=== PATIENT | female | born 1945 | race Caucasian/White ===

== ENCOUNTER → 2019-07-06 11:51 | Outpatient (BNVA) | payer MEDICARE, OTHER, SELFPAY | PROVIDERS: Family Provider Nurse Practitioner Family; PCP Nurse Practitioner Family; Visit Provider Social Worker | DX: F33.2 Major depressive disorder, recurrent severe without psychotic features (principal); F43.12 Post-traumatic stress disorder, chronic; F40.10 Social phobia, unspecified | CPT/HCPCS: 90834 ==

== ENCOUNTER 2019-07-09 09:50 | Outpatient (RCR) | payer MEDICARE, OTHER, SELFPAY | END 2019-07-31 23:59 | disposition home or self-care (01) | LOC: PULRHB 09:50 | PROVIDERS: Family Provider Nurse Practitioner Family; PCP Nurse Practitioner Family; Visit Provider Family Medicine | DX: J44.9 Chronic obstructive pulmonary disease, unspecified (principal) | CPT/HCPCS: 94618; G0424 ==

== ENCOUNTER → 2019-07-30 09:48 | Outpatient (BNVA) | payer MEDICARE, OTHER, SELFPAY | PROVIDERS: Family Provider Nurse Practitioner Family; PCP Nurse Practitioner Family; Visit Provider Social Worker | DX: F33.2 Major depressive disorder, recurrent severe without psychotic features (principal); F43.12 Post-traumatic stress disorder, chronic; F40.10 Social phobia, unspecified | CPT/HCPCS: 90834 ==

== ENCOUNTER 2019-08-05 07:19 | Outpatient (RCR) | payer MEDICARE, OTHER, SELFPAY | END 2019-08-29 23:59 | disposition home or self-care (01) | LOC: PULRHB 07:19 | PROVIDERS: Family Provider Nurse Practitioner Family; PCP Nurse Practitioner Family; Visit Provider Family Medicine | DX: J44.9 Chronic obstructive pulmonary disease, unspecified (principal) | CPT/HCPCS: G0239; G0424 ==

== ENCOUNTER → 2019-08-17 09:45 | Outpatient (BNVA) | payer MEDICARE, OTHER, SELFPAY | PROVIDERS: Family Provider Nurse Practitioner Family; PCP Nurse Practitioner Family; Visit Provider Social Worker | DX: F33.2 Major depressive disorder, recurrent severe without psychotic features (principal); F43.12 Post-traumatic stress disorder, chronic; F40.10 Social phobia, unspecified | CPT/HCPCS: 90834 ==

== ENCOUNTER → 2019-09-02 10:48 | Outpatient (BNVA) | payer MEDICARE, OTHER, SELFPAY | PROVIDERS: Family Provider Nurse Practitioner Family; PCP Nurse Practitioner Family; Visit Provider Social Worker | DX: F33.2 Major depressive disorder, recurrent severe without psychotic features (principal); F43.12 Post-traumatic stress disorder, chronic; F40.10 Social phobia, unspecified | CPT/HCPCS: 90834 ==

== ENCOUNTER 2019-09-04 12:48 | Outpatient (RCR) | payer MEDICARE, OTHER, SELFPAY | END 2019-09-29 23:59 | disposition home or self-care (01) | LOC: PULRHB 12:48 | PROVIDERS: Family Provider Nurse Practitioner Family; PCP Nurse Practitioner Family; Visit Provider Family Medicine | DX: J44.9 Chronic obstructive pulmonary disease, unspecified (principal) | CPT/HCPCS: G0239; G0424 ==

== ENCOUNTER 2019-09-09 09:27 | Outpatient (CLI) | payer MEDICARE, OTHER, SELFPAY ==
--- NOTE | 2019-09-09 10:15 | MM_ITS ---
WS: [id number] BILATERAL DIAGNOSTIC DIGITAL MAMMOGRAM WITH CAD HISTORY: HX OF BREAST CA COMPARISON: 09/03/2018, 08/28/2017, 08/20/2016 Bilateral CC and MLO views submitted. Computer aided detection analyzed. Breast composition: The breasts are heterogeneously dense, which may obscure small masses. No suspici ous masses, microcalcifications or architectural distortion. Dystrophic calcifications demonstrate lo ng-term stability in the central RIGHT breast. Postoperative clips in the axillary tail are stable. N o record changer multiple prior examinations. MM/[place] [id number] IMPRESSION: BI-RADS: 2-Benign FOLLOW UP: 1 Year Follow-up
== END 2019-09-09 09:28 | disposition home or self-care (01) ==
LOC: RADSHAW 09:31
PROVIDERS: Family Provider Nurse Practitioner Family; PCP Nurse Practitioner Family; Visit Provider Nurse Practitioner Family
DX: Z85.3 Personal history of malignant neoplasm of breast (principal)
CPT/HCPCS: 77066

== ENCOUNTER → 2019-10-27 08:28 | Outpatient (BNVA) | payer MEDICARE, OTHER, SELFPAY | PROVIDERS: Family Provider Nurse Practitioner Family; PCP Nurse Practitioner Family; Visit Provider Social Worker | DX: F33.2 Major depressive disorder, recurrent severe without psychotic features (principal); F43.12 Post-traumatic stress disorder, chronic; F40.10 Social phobia, unspecified | CPT/HCPCS: 90834 ==

== ENCOUNTER → 2019-11-18 07:57 | Outpatient (BNVA) | payer MEDICARE, OTHER, SELFPAY | PROVIDERS: Family Provider Nurse Practitioner Family; PCP Nurse Practitioner Family; Visit Provider Social Worker | DX: F33.2 Major depressive disorder, recurrent severe without psychotic features (principal); F43.12 Post-traumatic stress disorder, chronic; F40.10 Social phobia, unspecified | CPT/HCPCS: 90834 ==

== ENCOUNTER → 2019-12-02 07:54 | Outpatient (BNVA) | payer MEDICARE, OTHER, SELFPAY | PROVIDERS: PCP Nurse Practitioner Family; Visit Provider Social Worker | DX: F33.2 Major depressive disorder, recurrent severe without psychotic features (principal); F43.12 Post-traumatic stress disorder, chronic; F40.10 Social phobia, unspecified | CPT/HCPCS: 90834 ==

== ENCOUNTER 2019-12-11 10:15 | Outpatient (CLI) | payer MEDICARE, OTHER, SELFPAY ==
--- NOTE | 2019-12-11 11:00 | US_ITS ---
WS: [id number] Complete ABDOMINAL ULTRASOUND HISTORY: abdominal pain with radiating pain to back COMPARISON: None available. Liver: 10.9 cm in length. Liver is normal size and echogenicity with no mass or intrahepatic dilatati on. Gallbladder: Normally distended with no gallstones, wall thickening or pericholecystic fluid. Gallbladder wall thickness: 0.2 cm. Pancreas: Normal size and echogenicity. CBD: 0.3 cm. Right kidney: 10.3 cm x 4.1 cm x 4.4 cm. No mass, cortical thickening or hydronephrosis. Nonobstruct ing calcification RIGHT kidney measures 1.1 cm. Cortical cyst superior kidney with a maximum diameter of 1.2 cm. Left kidney: 10.2 cm x 4.2 cm x 4.6 cm. No mass, cortical thickening or hydronephrosis. Spleen: Normal size and echogenicity. Abdominal aorta and IVC are within normal limits. No ascites. US/US abdomen complete* [id number] IMPRESSION: 1. Normal gallbladder. 2. Nonobstructing calcification RIGHT kidney.
[2019-12-11 11:30] LABS: Basophils # 0.1 10^3/uL (0.0-0.1); Eosinophils # 0.1 10^3/uL (0.0-0.8); Eosinophils % 1.8 %; Hematocrit 46.8 % (37.0-47.0); Hemoglobin 15.4 g/dL (11.5-15.3); Lymphocytes # 2.6 10^3/uL (0.8-4.8); Lymphocytes % 41.6 %; Mean Corpuscular HGB Conc 32.9 g/dL (30.0-36.0); Mean Corpuscular Hemoglobin 31.9 pg (28.0-34.0); Mean Corpuscular Volume 96.9 fL (81-99); Mean Platelet Volume 8.7 fL (7.4-10.4); Monocytes # 0.7 10^3/uL (0.2-0.9); Monocytes % 10.9 %; Neutrophils # 2.7 10^3/uL (1.8-7.7); Neutrophils % 44.5 %; Nucleated Red Blood Cells % 0 %; Platelet Count 313 10^3/cmm (130-400); Red Blood Count 4.83 10^6/uL (4.1-5.3); Red Cell Distribution Width 13.4 % (12.1-15.1); White Blood Count 6.2 10^3/uL (4.0-10.0)
[2019-12-11 11:46] LABS: Bilirubin Urine Neg (NEGATIVE); Blood Urine Neg (Negative); Glucose Urine UA Norm (Normal); Ketones Urine 1+ (Negative); Leukocyte Esterase Urine Negative (Negative); Nitrate Urine Negative (Negative); Protein Urine Neg (Negative); Specific Gravity, Urine 1.005 (1.005-1.030); Urine Appearance Clear (CLEAR); Urine Color Yellow (Yellow); Urobilinogen Urine Norm (Negative)
[2019-12-11 11:50] LABS: Alanine Aminotransferase 23 U/L (0-33); Albumin Level 4.4 g/dL (3.5-5.2); Alkaline Phosphatase 62 IU/L (35-105); Anion Gap 13.1 (5-19); Aspartate Amino Transferase 23 U/L (0-32); Blood Urea Nitrogen 9 mg/dL (8-23); Calcium 8.8 mg/dL (8.5-10.5); Carbon Dioxide 25 mmol/L (22-29); Chloride 100 mmol/L (98-107); Globulin 2.1 g/dL (1.3-4.6); Glucose 84 mg/dL (65-115); Osmolality Calculated 273 mOsm/kg (285-295); Potassium 4.1 mmol/L (3.5-5.1); Sodium 134 mmol/L (136-145); Total Bilirubin 0.4 mg/dL (0.15-1.2); Total Protein 6.5 g/dL (6.6-8.7)
[2019-12-11 12:05] LABS: Bacteria Urine 1+; Mucus Urine TRACE; Squamous Epithelial Cell Urine 0-4 (0-5)
[2019-12-11 12:06] LABS: Add Urine Culture? No
== END 2019-12-11 10:16 | disposition home or self-care (01) ==
LOC: RAD 10:20
PROVIDERS: PCP Nurse Practitioner Family; Visit Provider Nurse Practitioner Family
DX: R10.9 Unspecified abdominal pain (principal); K21.9 Gastro-esophageal reflux disease without esophagitis; N20.0 Calculus of kidney
CPT/HCPCS: 76700; 80053; 81001; 85025

== ENCOUNTER → 2019-12-14 22:24 | Outpatient (BNVA) | payer MEDICARE, OTHER, SELFPAY | PROVIDERS: PCP Nurse Practitioner Family; Visit Provider Nurse Practitioner Family | DX: K21.0 Gastro-esophageal reflux disease with esophagitis (principal); R07.9 Chest pain, unspecified; R11.0 Nausea; R12 Heartburn; R14.2 Eructation | CPT/HCPCS: 87338 ==

== ENCOUNTER → 2020-03-28 08:52 | Outpatient (BNVA) | payer MEDICARE, OTHER, SELFPAY | PROVIDERS: PCP Nurse Practitioner Family; Visit Provider Nurse Practitioner Family | DX: E03.9 Hypothyroidism, unspecified (principal); Z79.899 Other long term (current) drug therapy; E78.2 Mixed hyperlipidemia | CPT/HCPCS: 80053; 80061; 81003; 83036; 84443; 85025 ==

== ENCOUNTER 2020-09-27 10:27 | Outpatient (CLI) | payer MEDICARE, OTHER, SELFPAY ==
--- NOTE | 2020-09-27 10:30 | MM_ITS ---
WS: [id number] DIAGNOSTIC BILATERAL DIGITAL MAMMOGRAM WITH CAD HISTORY: C50.919 - Malignant neoplasm of unspecified site of unspecified female breast COMPARISON: 09/09/2019, 09/03/2018 and 08/28/2017 TECHNIQUE: Bilateral craniocaudad, mediolateral oblique, and mediolateral views are submitted. Comput er aided detection utilized. Breast composition: The breasts are heterogeneously dense, which may obscure small masses. Postsurgic al changes in the upper outer quadrant of the RIGHT breast. There are dystrophic calcifications centr ally which are stable over multiple prior years. Stable lymph nodes in the LEFT breast. MM/[place] [id number] IMPRESSION: BI-RADS: 2-Benign FOLLOW UP: 1 Year Follow-up
== END 2020-09-27 10:28 | disposition home or self-care (01) ==
LOC: RADSHAW 10:28
PROVIDERS: PCP Nurse Practitioner Family; Visit Provider Nurse Practitioner Family
DX: C50.919 Malignant neoplasm of unspecified site of unspecified female breast (principal); R92.1 Mammographic calcification found on diagnostic imaging of breast
CPT/HCPCS: 77066

== ENCOUNTER 2020-10-21 09:20 | Outpatient (CLI) | payer MEDICARE, OTHER, SELFPAY ==
--- NOTE | 2020-10-21 09:30 | XR_ITS ---
WS: [id number] Lateral views of cervical spine in the flexion, extension and neutral positions. 10/21/2020 Clinical Data: M50.30 - Other cervical disc degeneration, unspecified cervical region Comparison: Lateral cervical spine, 02/11/2017. Findings: There is a 0.3 cm subluxation of C4 on C5. This does not change on flexion or extension. There is no limitation of motion on flexion or extension. No compression fractures are seen. There is no preverte bral soft tissue swelling. XR/XR cervical spine fl/ex [id number] Impression: 1. 0.3 cm subluxation of C4 on C5 which does not change with flexion or extensi on. 2. Negative for limitation of motion on flexion or extension.
--- NOTE | 2020-10-21 09:30 | XR_ITS ---
WS: [id number] Thoracic spine, 3 views, 10/21/2020 Clinical Data: M51.34 - Other intervertebral disc degeneration, thoracic region Comparison: None. Findings: No compression fractures are seen. The disc heights are normal. The paravertebral regions are normal. XR/XR thoracic spine 3V* [id number] Impression: Negative thoracic spine.
== END 2020-10-21 09:21 | disposition home or self-care (01) ==
LOC: RAD 09:28
PROVIDERS: PCP Nurse Practitioner Family; Visit Provider Nurse Practitioner Family
DX: M50.30 Other cervical disc degeneration, unspecified cervical region (principal); M51.34 Other intervertebral disc degeneration, thoracic region; S13.150A Subluxation of C4/C5 cervical vertebrae, initial encounter; X58.XXXA Exposure to other specified factors, initial encounter
CPT/HCPCS: 72040; 72072

== ENCOUNTER 2020-11-02 10:54 | Outpatient (CLI) | payer MEDICARE, OTHER, SELFPAY ==
[2020-11-02 12:22] LABS: Basophils # 0.1 10^3/uL (0.0-0.1); Eosinophils # 0.2 10^3/uL (0.0-0.8); Eosinophils % 3.3 %; Hematocrit 45.5 % (37.0-47.0); Hemoglobin 15.4 g/dL (11.5-15.3); Lymphocytes # 2.5 10^3/uL (0.8-4.8); Lymphocytes % 40.3 %; Mean Corpuscular HGB Conc 33.8 g/dL (30.0-36.0); Mean Corpuscular Hemoglobin 31.2 pg (28.0-34.0); Mean Corpuscular Volume 92.3 fL (81-99); Monocytes # 0.7 10^3/uL (0.2-0.9); Monocytes % 11.4 %; Neutrophils # 2.76 10^3/uL (1.8-7.7); Neutrophils % 43.8 %; Nucleated Red Blood Cells % 0 %; Platelet Count 367 10^3/cmm (130-400); Red Blood Count 4.93 10^6/uL (4.1-5.3); Red Cell Distribution Width 13.2 % (12.1-15.1); White Blood Count 6.3 10^3/uL (4.0-10.0)
[2020-11-02 12:34] LABS: Blood Urine Neg (Negative); Glucose Urine UA Norm (Normal); Ketones Urine Negative (Negative); Protein Urine Neg (Negative); Specific Gravity, Urine 1.005 (1.005-1.030); Urine Appearance Clear (CLEAR); Urine Color Yellow (Yellow); pH Urine 7 (5-7)
[2020-11-02 12:35] LABS: Bilirubin Urine Neg (Negative); Leukocyte Esterase Urine Negative (Negative); Nitrate Urine Negative (Negative); Urobilinogen Urine Norm (Negative)
[2020-11-02 12:40] LABS: Add Urine Culture? No; Bacteria Urine 1+ /hpf; Squamous Epithelial Cell Urine 0-4 /hpf (0-5)
[2020-11-02 12:50] LABS: 25 Hydroxy Vitamin D 62 ng/mL (30-100); Alanine Aminotransferase 13 U/L (0-33); Albumin Level 4.3 g/dL (3.5-5.2); Alkaline Phosphatase 63 IU/L (35-105); Anion Gap 11.1 (5-19); Aspartate Amino Transferase 12 U/L (0-32); Blood Urea Nitrogen 11 mg/dL (8-23); Calcium 8.7 mg/dL (8.5-10.5); Carbon Dioxide 29 mmol/L (22-29); Chloride 98 mmol/L (98-107); Chol HDL Ratio 4.22 mg/dL (0.0-4.40); Cholesterol 211 mg/dL (0-200); Estmated Average Glucose 120; Globulin 2.1 g/dL (1.3-4.6); Glucose 89 mg/dL (65-115); HDL Cholesterol 50 mg/dL (60-100); Hemoglobin A1C 5.8 % (4.0-6.0); LDL Cholesterol Calculated 141 mg/dL (50-129); LDL HDL Ratio 2.82 RATIO (0.00-3.22); Osmolality Calculated 277 mOsm/kg (285-295); Potassium 4.1 mmol/L (3.5-5.1); Sodium 134 mmol/L (136-145); Thyroid Stimulating Hormone 3.08 uIU/mL (0.27-4.20); Total Bilirubin 0.3 mg/dL (0.15-1.2); Total Protein 6.4 g/dL (6.6-8.7); Triglycerides 98 mg/dL (0-150)
[2020-11-03 13:17] LABS: Cyclic Citrullinated Peptide <16 UNITS
[2020-11-03 13:47] LABS: Anti-Nuclear Antibody Screen NEGATIVE (NEGATIVE)
== END 2020-11-02 10:55 | disposition home or self-care (01) ==
PROVIDERS: PCP Nurse Practitioner Family; Visit Provider Nurse Practitioner Family
DX: S13.150A Subluxation of C4/C5 cervical vertebrae, initial encounter (principal); E78.2 Mixed hyperlipidemia; E03.9 Hypothyroidism, unspecified; E55.9 Vitamin D deficiency, unspecified; Z79.899 Other long term (current) drug therapy; X58.XXXA Exposure to other specified factors, initial encounter
CPT/HCPCS: 36415; 80053; 80061; 81001; 82306; 83036; 84443; 85025; 86038; 86431

== ENCOUNTER 2021-02-23 08:49 | Outpatient (CLI) | payer MEDICARE, OTHER, SELFPAY ==
[2021-02-23 09:30] LABS: Basophils # 0.1 10^3/uL (0.0-0.1); Basophils % 0.9 %; Eosinophils # 0.1 10^3/uL (0.0-0.8); Eosinophils % 2.5 %; Hematocrit 44.6 % (37.0-47.0); Hemoglobin 15.1 g/dL (11.5-15.3); Lymphocytes # 2.3 10^3/uL (0.8-4.8); Mean Corpuscular HGB Conc 33.9 g/dL (30.0-36.0); Mean Corpuscular Hemoglobin 31.5 pg (28.0-34.0); Mean Corpuscular Volume 92.9 fl (81-99); Mean Platelet Volume 8.6 fL (7.4-10.4); Monocytes # 0.8 10^3/uL (0.2-0.9); Monocytes % 13.1 %; Neutrophils # 2.42 10^3/uL (1.8-7.7); Neutrophils % 42.3 %; Nucleated Red Blood Cells % 0 %; Platelet Count 295 10^3/cmm (130-400); Red Cell Distribution Width 13.4 % (12.1-15.1); White Blood Count 5.7 10^3/uL (4.0-10.0)
[2021-02-23 09:50] LABS: Bilirubin Urine Neg (Negative); Blood Urine Neg (Negative); Glucose Urine UA Norm (Normal); Ketones Urine Negative (Negative); Leukocyte Esterase Urine Negative (Negative); Nitrate Urine Negative (Negative); Protein Urine Neg (Negative); Urine Appearance Clear (CLEAR); Urine Color Yellow (Yellow); Urobilinogen Urine Norm (Negative); pH Urine 7 (5-7)
[2021-02-23 09:51] LABS: Add Urine Culture? No; Amorphous Sediment Urine 1+ /hpf; Bacteria Urine TRACE /hpf; Mucus Urine TRACE /hpf; RBC Urine RARE /hpf (0-2); Squamous Epithelial Cell Urine RARE /hpf (0-5); WBC Urine RARE /hpf (0-5)
[2021-02-23 09:58] LABS: Estmated Average Glucose 111; Hemoglobin A1C 5.5 % (4.0-6.0)
[2021-02-23 10:06] LABS: Alanine Aminotransferase 14 U/L (0-33); Alkaline Phosphatase 61 IU/L (35-105); Anion Gap 10.5 (5-19); Aspartate Amino Transferase 15 U/L (0-32); Blood Urea Nitrogen 9 mg/dL (8-23); Calcium 8.9 mg/dL (8.5-10.5); Carbon Dioxide 28 mmol/L (22-29); Chloride 99 mmol/L (98-107); Creatine Phosphokinase 124 U/L (26-192); Free T4 Free Thyroxine 1.15 ng/dL (0.82-1.77); Globulin 2.7 g/dL (1.3-4.6); Glucose 86 mg/dL (65-115); Osmolality Calculated 274 mOsm/kg (285-295); Potassium 4.5 mmol/L (3.5-5.1); Sodium 133 mmol/L (136-145); Total Bilirubin 0.3 mg/dL (0.15-1.2); Total Protein 6.7 g/dL (6.6-8.7)
[2021-02-23 10:10] LABS: Folate Level 9.2 ng/mL (4.8-37.3)
[2021-02-23 10:40] LABS: Vitamin B12 450 pg/mL (232-1245)
== END 2021-02-23 08:50 | disposition home or self-care (01) ==
PROVIDERS: PCP Nurse Practitioner Family; Visit Provider Nurse Practitioner Family
DX: F51.01 Primary insomnia (principal); E03.9 Hypothyroidism, unspecified; R13.10 Dysphagia, unspecified; Z79.899 Other long term (current) drug therapy; R73.01 Impaired fasting glucose
CPT/HCPCS: 36415; 80053; 81001; 82550; 82607; 82746; 83036; 84439; 84443; 85025

== ENCOUNTER → 2021-03-07 15:33 | Outpatient (BNVA) | payer MEDICARE, OTHER, SELFPAY | PROVIDERS: PCP Nurse Practitioner Family; Visit Provider Internal Medicine | DX: Z01.812 Encounter for preprocedural laboratory examination (principal); R13.10 Dysphagia, unspecified; Z20.822 Contact with and (suspected) exposure to COVID-19 | CPT/HCPCS: 87635 ==

== ENCOUNTER 2021-03-10 08:32 | Day surgery (SDC) | payer MEDICARE, OTHER, SELFPAY ==
[2021-03-09 10:43] VITALS: BMI 21.8
--- NOTE | 2021-03-10 08:26 | ANES.PREANE2 ---
Pre-Anesthetic Assessment Pre-Anesthetic Assessment: Height/Weight: Height 1.63 m Weight 57.606 kg Proposed Procedure: Operation Date: 03/10/21 09:30 Proposed Procedures p EGD Dilation W/ Bougie 84088 R13.10(Not Applicable) - Terrence Early MD Was Beta Elena taken within 24 hours: N/A Was Clonidine taken within 24 hours: N/A Social: Social History: Tobacco and No alcohol Exam: Pre-Anes Outpt Exam: alert, oriented x 3, clear to auscultation bilaterally and regular rate & rhythm Airway: Submandibular: WNL Cervical ROM: WNL Pulmonary: Pulmonary: COPD and SOB CV/HEM: CV/HEM: HTN and None reported : : None reported Hepatic: Hepatic: None reported GI: GI: GERD Metabolic: Metabolic: Hyperlipidemia and Thyroid Musc/skel: Musc/skel: Lower Back Pain, OA/DJD and Weakness Neuropsych: Neuropsych: Depression Anesthetic Plan: ASA status: 3 PFSH Anesthesia PFSH: Medical History Breast cancer Chronic obstructive pulmonary disease COPD (chronic obstructive pulmonary disease) COVID-19 vaccine series completed DDD (degenerative disc disease), cervical DDD (degenerative disc disease), lumbar DDD (degenerative disc disease), lumbar DDD (degenerative disc disease), thoracic Diverticulitis Dysphagia Dysphagia GERD (gastroesophageal reflux disease) Hemoglobin A1c less than 7.0% Herpes Hypothyroid Hypothyroidism Insomnia Lumbar paraspinal muscle spasm Medication management Mixed hyperlipidemia PND (post-nasal drip) Pneumonia Shortness of breath Sinus congestion Subluxation of C4/C5 cervical vertebrae, initial encounter Vitamin D deficiency Surgical History H/O tubal ligation History of bladder surgery Bdyywhqe-Idqpcddlc-Auljwq Procedure History of hysterectomy History of lumpectomy of right breast Hx of tonsillectomy Family History Father Lung disease COPD Psychiatric illness Depression Mother Cancer Lung Social History Smoking and tobacco status: former smoker Quit status (tobacco): has quit using tobacco Year quit tobacco: 2001 - 1PPD x 30 Years Alcohol intake: current Alcohol intake frequency: few times a week Lives independently: Yes Household members: spouse Marital status: Current occupational status: retired History of recent travel: No Current gender identity: Female Data Anesthesia Cardiac Studies: No Data to Display
[2021-03-10 08:56] VITALS: BP 143/81; PULSE 71; RESP 16; TEMP 36.6; O2SAT 96
[2021-03-10] MEDS: sodium chloride 0.9% 1,000 ML 30 ML IV (09:07)
--- NOTE | 2021-03-10 09:24 | W.PM.OPSFHP ---
Same Day Surgery H&P Indication for Procedure/HPI DATE OF PROCEDURE: March 10, 2021 CHIEF COMPLAINT/INDICATIONFOR SURGICAL PROCEDURE: Dysphagia PREOP DIAGNOSIS: dysphagia PLANNED PROCEDRUE: Operation Date: 03/10/21 09:30 Proposed Procedures p EGD Dilation W/ Bougie 65731 R13.10(Not Applicable) - Terrence Early MD Medications/Allergies* Home Medications Medication Instructions Recorded Confirmed Type Lactobacillus acidophilus 1 cap PO DAILY 07/31/19 03/10/21 History [Probiotic Acidophilus] cholecalciferol (vitamin D3) 25 50 mcg PO QDAY cap 07/31/19 03/10/21 History mcg (1,000 unit) capsule Sudafed 30 mg PO DAILY PRN 03/09/21 03/09/21 History fluticasone propionate [Flonase 1 spray INTRANASAL DAILY 03/09/21 03/10/21 History Allergy Relief] fluticasone propionate [Flovent 1 inh INHALATION BID 03/09/21 03/10/21 History Diskus] levothyroxine 25 mcg PO DAILY 03/09/21 03/10/21 History magnesium 100 mg PO BID 03/09/21 03/10/21 History valacyclovir 500 mg PO QDAY 03/09/21 03/10/21 History Allergies/Adverse Reactions Allergy/AdvReac Type Severity Reaction Status Date / Time Sulfa (Sulfonamide Allergy UNKNOWN Verified 03/02/21 13:27 Antibiotics) Current Medications: Generic Name Dose Route Start Last Admin Trade Name Freq PRN Reason Stop Dose Admin Sodium Chloride 1,000 mls @ 30 mls/hr 03/10/21 08:45 03/10/21 09:07 Sodium Chloride 0.9% IV 03/11/21 08:44 30 mls/hr .Q24H ELAINE Administration Pertinent History/Comorbid Conditions* Medical History (Updated 02/23/21 @ 09:02 by CASIE Turcios) Breast cancer Chronic obstructive pulmonary disease COPD (chronic obstructive pulmonary disease) COVID-19 vaccine series completed DDD (degenerative disc disease), cervical DDD (degenerative disc disease), lumbar DDD (degenerative disc disease), lumbar DDD (degenerative disc disease), thoracic Diverticulitis Dysphagia Dysphagia GERD (gastroesophageal reflux disease) Hemoglobin A1c less than 7.0% Herpes Hypothyroid Hypothyroidism Insomnia Lumbar paraspinal muscle spasm Medication management Mixed hyperlipidemia PND (post-nasal drip) Pneumonia Shortness of breath Sinus congestion Subluxation of C4/C5 cervical vertebrae, initial encounter Vitamin D deficiency Surgical History (Updated 08/03/19 @ 13:57 by Yvon Monteiro MD) H/O tubal ligation History of bladder surgery Jnvjmnfj-Yjjtfkjtt-Jlbgeg Procedure History of hysterectomy History of lumpectomy of right breast Hx of tonsillectomy Family History (Updated 07/31/19 @ 12:11 by Jocelin Guevara LPN) Psychiatric illness Father Depression Lung disease Father COPD Cancer Mother Lung Social History Smoking and tobacco status: former smoker Quit status (tobacco): has quit using tobacco Year quit tobacco: 2001 - 1PPD x 30 Years Alcohol intake: current Alcohol intake frequency: few times a week Lives independently: Yes Household members: spouse Marital status: Current occupational status: retired History of recent travel: No Current gender identity: Female Pertinent Exam Findings alert, oriented x 3, clear to auscultation bilaterally, regular rate & rhythm, operative site marked and procedure specific exam findings Recommendations Surgery/Procedure today Coding Level of Care Code Acute 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
[2021-03-10 09:43] VITALS: BP 127/65; PULSE 69; RESP 16; TEMP 36.1; O2SAT 98
[2021-03-10 09:53] VITALS: BP 118/75; PULSE 71; RESP 18; O2SAT 97
--- NOTE | 2021-03-10 11:12 | ANE.PACU2 ---
Inpatient post-anesthesia follow up: Airway intact: Yes Vital signs: Temperature 97.0 F Pulse Rate 71 Respiratory Rate 18 Blood Pressure 118/75 Pulse Oximetry 97 Oxygen Delivery Me thod Room Air Oxygen Flow Rate 3 Fraction of Inspir ed Oxygen Hydration adequate: Yes Nausea and vomiting: No Pain level: 1 Mental status: Baseline
[2021-03-12 07:16] LABS: H. Pylori / CLO Test Negative
== END 2021-03-10 10:17 | disposition home or self-care (01) ==
PROVIDERS: PCP Nurse Practitioner Family; Visit Provider Internal Medicine
DX: R13.10 Dysphagia, unspecified (principal); K29.70 Gastritis, unspecified, without bleeding; Z85.3 Personal history of malignant neoplasm of breast; J44.9 Chronic obstructive pulmonary disease, unspecified; K21.9 Gastro-esophageal reflux disease without esophagitis; E03.9 Hypothyroidism, unspecified; E78.2 Mixed hyperlipidemia; E55.9 Vitamin D deficiency, unspecified; Z87.891 Personal history of nicotine dependence
CPT/HCPCS: 43239; 87077; 96360; J2704; J7030

== ENCOUNTER → 2021-09-08 10:06 | Outpatient (BNVA) | payer MEDICARE, SELFPAY | PROVIDERS: PCP Nurse Practitioner Family; Visit Provider Internal Medicine Critical Care Medicine | DX: J44.9 Chronic obstructive pulmonary disease, unspecified (principal); K21.9 Gastro-esophageal reflux disease without esophagitis; R13.10 Dysphagia, unspecified; E78.2 Mixed hyperlipidemia; E03.9 Hypothyroidism, unspecified | CPT/HCPCS: 99214 ==

== ENCOUNTER 2021-09-15 07:49 | Outpatient (CLI) | payer MEDICARE, SELFPAY ==
--- NOTE | 2021-09-15 08:54 | MM_ITS ---
WS: [id number] BILATERAL 3D TOMOSYNTHESIS DIGITAL DIAGNOSTIC MAMMOGRAPHY WITH CAD CLINICAL INFORMATION: HX OF BR CA HISTORY: COMPARISON: September 27, 2020 TECHNIQUE: Bilateral CC, MLO, and ML views. FINDINGS: The breasts are composed of heterogeneous fibroglandular density, which can limit the detection of sm all underlying mass lesions. Surgical clips RIGHT axilla. Dystrophic and secretory calcifications RIG HT breast are stable. Punctate calcifications LEFT breast are stable. Vascular calcification No suspicious focal mass, asymmetry, calcifications, or architectural distortion. No evidence of hanna gnancy. MM/[place] [id number] IMPRESSION: BI-RADS: 2-Benign FOLLOW UP: 1 Year Follow-up Recommend return to annual diagnostic mammography.
== END 2021-09-15 07:50 | disposition home or self-care (01) ==
PROVIDERS: PCP Nurse Practitioner Family; Visit Provider Nurse Practitioner Family
DX: Z85.3 Personal history of malignant neoplasm of breast (principal)
CPT/HCPCS: 77062

== ENCOUNTER → 2021-09-28 09:51 | Outpatient (BNVA) | payer MEDICARE, SELFPAY | PROVIDERS: PCP Nurse Practitioner Family; Visit Provider Internal Medicine Critical Care Medicine | DX: Z20.822 Contact with and (suspected) exposure to COVID-19 (principal) | CPT/HCPCS: 87635 ==

== ENCOUNTER 2021-10-04 09:55 | Outpatient (CLI) | payer MEDICARE, SELFPAY ==
--- NOTE | 2021-10-04 13:47 | PFTS_ITS ---
Date of Study:10/04/21 Date of Dictation: MECHANICS: Forced vital capacity (FVC) is reduced. Forced expiratory volume in one second (FEV1) is reduced. FEV1/FVC is reduced. FLOW VOLUME LOOP: Reduced flow at all lung volumes with significant scooping. LUNG VOLUMES: Total lung capacity (TLC) is normal. Residual volume (RV) is increased. DIFFUSING CAPACITY FOR CARBON MONOXIDE: Moderate reduced. INTERPRETATION: The postbronchodilator spirometry is consistent with severe airflow obstruction. There is no significant postbronchodilator response. Lung volumes are consistent with air trapping. Gas exchange (DLCO) is moderately reduced. MTDD
== END 2021-10-04 09:56 | disposition home or self-care (01) ==
LOC: RT 09:57
PROVIDERS: PCP Nurse Practitioner Family; Visit Provider Internal Medicine Critical Care Medicine
DX: J44.9 Chronic obstructive pulmonary disease, unspecified (principal)
CPT/HCPCS: 94060; 94618; 94726; 94729; J7611

== ENCOUNTER 2021-11-29 11:34 | Outpatient (RCR) | payer MEDICARE, SELFPAY | END 2021-12-28 23:59 | disposition home or self-care (01) | LOC: SPT 11:34 | PROVIDERS: PCP Family Medicine; Referring Provider Nurse Practitioner; Visit Provider Nurse Practitioner | DX: M50.30 Other cervical disc degeneration, unspecified cervical region (principal) | CPT/HCPCS: 97110; 97161; 97530 ==

== ENCOUNTER → 2021-12-11 10:49 | Outpatient (BNVA) | payer MEDICARE, SELFPAY | PROVIDERS: PCP Family Medicine; Visit Provider Internal Medicine Critical Care Medicine | DX: J44.9 Chronic obstructive pulmonary disease, unspecified (principal); Z87.891 Personal history of nicotine dependence; K21.9 Gastro-esophageal reflux disease without esophagitis; E78.5 Hyperlipidemia, unspecified | CPT/HCPCS: 71046; 99214 ==

== ENCOUNTER 2021-12-13 13:29 | Outpatient (CLI) | payer MEDICARE, SELFPAY ==
[2021-12-13 14:16] LABS: Basophils # 0.1 10^3/uL (0.0-0.1); Basophils % 0.5 %; Eosinophils % 0.4 %; Hematocrit 42.8 % (37.0-47.0); Hemoglobin 14.8 g/dL (11.5-15.3); Lymphocytes # 2.5 10^3/uL (0.8-4.8); Lymphocytes % 25.8 %; Mean Corpuscular HGB Conc 34.6 g/dL (30.0-36.0); Mean Corpuscular Volume 89.5 fl (81-99); Mean Platelet Volume 8.8 fL (7.4-10.4); Monocytes # 0.7 10^3/uL (0.2-0.9); Monocytes % 6.9 %; Neutrophils # 6.33 10^3/uL (1.8-7.7); Neutrophils % 65.7 %; Nucleated Red Blood Cells % 0 %; Platelet Count 380 10^3/cmm (130-400); Red Blood Count 4.78 10^6/uL (4.1-5.3); White Blood Count 9.6 10^3/uL (4.0-10.0)
[2021-12-13 14:47] LABS: Alanine Aminotransferase 10 U/L (0-33); Albumin Level 4.3 g/dL (3.5-5.2); Alkaline Phosphatase 47 IU/L (35-105); Anion Gap 12.2 (5-19); Aspartate Amino Transferase 8 U/L (0-32); Blood Urea Nitrogen 12 mg/dL (8-23); Calcium 8.7 mg/dL (8.5-10.5); Carbon Dioxide 27 mmol/L (22-29); Chloride 95 mmol/L (98-107); Chol HDL Ratio 3.47 mg/dL (0.0-4.40); Cholesterol 229 mg/dL (0-200); Globulin 2.3 g/dL (1.3-4.6); Glucose 119 mg/dL (65-115); HDL Cholesterol 66 mg/dL (60-100); LDL Cholesterol Calculated 140 mg/dL (50-129); LDL HDL Ratio 2.12 RATIO (0.00-3.22); Osmolality Calculated 271 mOsm/kg (285-295); Potassium 4.2 mmol/L (3.5-5.1); Sodium 130 mmol/L (136-145); Thyroid Stimulating Hormone 1.64 uIU/mL (0.27-4.20); Total Bilirubin 0.3 mg/dL (0.15-1.2); Total Protein 6.6 g/dL (6.6-8.7); Triglycerides 115 mg/dL (0-150)
[2021-12-13 15:43] LABS: 25 Hydroxy Vitamin D 67 ng/mL (30-100)
[2021-12-13 17:36] LABS: Estmated Average Glucose 126
== END 2021-12-13 13:30 | disposition home or self-care (01) ==
LOC: LAB 13:31
PROVIDERS: PCP Family Medicine; Visit Provider Family Medicine
DX: E03.9 Hypothyroidism, unspecified (principal); E55.9 Vitamin D deficiency, unspecified; E78.2 Mixed hyperlipidemia; K21.9 Gastro-esophageal reflux disease without esophagitis; R73.09 Other abnormal glucose; Z79.899 Other long term (current) drug therapy; R49.0 Dysphonia; R13.10 Dysphagia, unspecified; J44.9 Chronic obstructive pulmonary disease, unspecified; Z87.891 Personal history of nicotine dependence
CPT/HCPCS: 31575; 80053; 80061; 82306; 83036; 84443; 85025; 99204

== ENCOUNTER 2021-12-29 06:00 | Outpatient (RCR) | payer MEDICARE, SELFPAY | END 2022-01-28 23:59 | disposition home or self-care (01) | LOC: SPT 06:00 | PROVIDERS: PCP Family Medicine; Referring Provider Nurse Practitioner; Visit Provider Nurse Practitioner | DX: M50.30 Other cervical disc degeneration, unspecified cervical region (principal) | CPT/HCPCS: 97110 ==

== ENCOUNTER 2022-01-29 06:00 | Outpatient (RCR) | payer MEDICARE, SELFPAY | END 2022-02-07 14:17 | disposition home or self-care (01) | LOC: SPT 06:00 | PROVIDERS: PCP Family Medicine; Referring Provider Nurse Practitioner; Visit Provider Nurse Practitioner | DX: M50.30 Other cervical disc degeneration, unspecified cervical region (principal) | CPT/HCPCS: 97110 ==

== ENCOUNTER 2022-02-07 14:30 | Outpatient (CLI) | payer MEDICARE, SELFPAY ==
--- NOTE | 2022-02-07 14:37 | XR_ITS ---
WS: [id number] DEXA (DUAL ENERGY X-RAY ABSORPTIOMETRY) Bone mineral density was performed using a [employer] machine. HISTORY: Z13.820 - Encounter for screening for osteoporosis COMPARISON: None available. Lumbar spine BMD (L1-L4): 1.270 g/cm2 T score: 0.7 Z score: 2.7 Total hip BMD: Left: 1.055 g/cm2. T score: 0.4 Z score: 2.3 Right: 1.061 g/cm2. T score: 0.4 Z score: 2.3 10 year probability of a major osteoporotic fracture is 12.3%. XR/XR DEXA axial skeleton* [id number] IMPRESSION: NORMAL BONE MINERAL DENSITY based upon the WHO classification for females.
== END 2022-02-07 14:31 | disposition home or self-care (01) ==
LOC: RAD 14:31
PROVIDERS: PCP Family Medicine; Visit Provider Family Medicine
DX: Z13.820 Encounter for screening for osteoporosis (principal)
CPT/HCPCS: 77080

== ENCOUNTER → 2022-03-13 12:53 | Outpatient (BNVA) | payer MEDICARE, SELFPAY | PROVIDERS: PCP Family Medicine; Visit Provider Internal Medicine Critical Care Medicine | DX: J44.9 Chronic obstructive pulmonary disease, unspecified (principal); Z79.52 Long term (current) use of systemic steroids; Z87.891 Personal history of nicotine dependence | CPT/HCPCS: 99214 ==

== ENCOUNTER → 2022-06-19 09:38 | Outpatient (BNVA) | payer MEDICARE, SELFPAY | PROVIDERS: PCP Family Medicine; Visit Provider Family Medicine | DX: E03.9 Hypothyroidism, unspecified (principal); R53.83 Other fatigue; M54.12 Radiculopathy, cervical region; M62.838 Other muscle spasm; J44.9 Chronic obstructive pulmonary disease, unspecified; Z79.899 Other long term (current) drug therapy | CPT/HCPCS: 80053; 80061; 83036; 84443; 85025 ==

== ENCOUNTER → 2022-07-24 17:06 | Outpatient (BNVA) | payer MEDICARE, SELFPAY | PROVIDERS: PCP Family Medicine; Visit Provider Internal Medicine Pulmonary Disease | DX: J30.81 Allergic rhinitis due to animal (cat) (dog) hair and dander (principal); R06.02 Shortness of breath; J44.9 Chronic obstructive pulmonary disease, unspecified; Z87.891 Personal history of nicotine dependence; Z79.52 Long term (current) use of systemic steroids | CPT/HCPCS: 36415; 82785; 86003; 99214 ==

== ENCOUNTER 2022-08-20 08:35 | Outpatient (CLI) | payer MEDICARE, SELFPAY ==
--- NOTE | 2022-08-20 08:45 | MR_ITS ---
WS: [id number] MRI CERVICAL SPINE NONCONTRAST HISTORY: Chronic neck pain down both arms. COMPARISON: 01/30/2017 Technique: Multiplanar, multisequence noncontrast imaging of the cervical spine. Posterior cervical alignment is normal. Signal within the cervical cord is normal. Visualized posterior fossa is unremarkable. Craniocervical junction, C1 and C2 relationship, odontoid process and soft tissues are normal. C2-C3: Normal. C3-C4: Normal. C4-C5: Mild facet arthritis. No stenosis. C5-C6: Tiny central disc protrusion with mild bilateral facet joint arthritis. No stenosis. C6-C7: Mild annular disc bulge with a central disc protrusion. Mild flattening of the ventral thecal sac and CSF. Moderate bilateral facet joint arthritis. Mild central and bilateral foraminal stenosis. C7-T1: No stenosis. Paravertebral soft tissues are negative. MR/MR cervical spin wo con* [id number] IMPRESSION: 1. No high-grade central or foraminal stenosis. 2. Mild central and moderate bilateral foraminal stenosis at C6-7. Stenoses du e to combination of a central disc protrusion with facet joint arthritis. Mild progression since the prior study. 3. Mild bilateral facet joint arthritis at C5-6 with a tiny central disc protr usion.
== END 2022-08-20 08:36 | disposition home or self-care (01) ==
PROVIDERS: PCP Family Medicine; Visit Provider Family Medicine
DX: R53.83 Other fatigue (principal); G89.29 Other chronic pain; M48.02 Spinal stenosis, cervical region; M47.812 Spondylosis without myelopathy or radiculopathy, cervical region; M50.222 Other cervical disc displacement at C5-C6 level
CPT/HCPCS: 72141

== ENCOUNTER 2022-09-24 09:47 | Outpatient (CLI) | payer MEDICARE, SELFPAY ==
--- NOTE | 2022-09-24 09:59 | MM_ITS ---
WS: [email or web address] VIEWS: MLO, CC, and ML views both breasts. 3D digital tomosynthesis is also included in this exam. Comparisons 08/20/2016, 08/28/2017, 09/03/2018, 09/09/2019, 09/27/2020, 09/15/2021. Findings: No new suspicious finding in either breast. Stable appearing coarse and microcalcifications scattered throughout both breasts. Stable postoperative changes in the right breast. Heterogeneously dense MM/[place] [id number] Impression: BI-RADS: 2-Benign FOLLOW-UP: 1 Year Follow-up This mammogram was also analyzed by the Computer Aided Detection System R2 Imag e Notch Machine Operator. C50.919 - Malignant neoplasm of unspecified site of unspe...
== END 2022-09-24 09:48 | disposition home or self-care (01) ==
PROVIDERS: PCP Family Medicine; Visit Provider Family Medicine
DX: Z85.3 Personal history of malignant neoplasm of breast (principal)
CPT/HCPCS: 77062; G0279

== ENCOUNTER → 2022-09-26 10:55 | Outpatient (BNVA) | payer MEDICARE, SELFPAY | PROVIDERS: PCP Family Medicine; Visit Provider Family Medicine | DX: E03.9 Hypothyroidism, unspecified (principal); E78.2 Mixed hyperlipidemia; E87.1 Hypo-osmolality and hyponatremia; Z79.899 Other long term (current) drug therapy | CPT/HCPCS: 80053; 80061; 83036; 84443 ==

== ENCOUNTER → 2022-10-08 14:39 | Outpatient (BNVA) | payer MEDICARE, SELFPAY | PROVIDERS: PCP Family Medicine; Visit Provider Family Medicine | DX: E87.1 Hypo-osmolality and hyponatremia (principal) | CPT/HCPCS: 82570; 83935; 84300 ==

== ENCOUNTER → 2022-11-19 11:44 | Outpatient (BNVA) | payer MEDICARE, SELFPAY | PROVIDERS: PCP Family Medicine; Visit Provider Internal Medicine Pulmonary Disease | DX: J44.9 Chronic obstructive pulmonary disease, unspecified (principal); J22 Unspecified acute lower respiratory infection; J30.81 Allergic rhinitis due to animal (cat) (dog) hair and dander; J45.909 Unspecified asthma, uncomplicated | CPT/HCPCS: 71046; 99214 ==

== ENCOUNTER 2022-12-25 08:26 | Outpatient (CLI) | payer MEDICARE, SELFPAY ==
--- NOTE | 2022-12-25 08:40 | XR_ITS ---
WS: [id number] Exam: XR chest 2V* [id number] Date/Time of Exam: 12/25/2022 8:42 AM Reason For Exam: suspected pneumonia Comparison 11/19/2022. The lungs are hyperinflated and clear. Cardiomediastinal silhouette is unremarkable. No pleural effus ions. Surgical clips noted along the right heart border and the right axilla. Bony structures are int act. XR/XR chest 2V* [id number] IMPRESSION: 1. Pulmonary hyperinflation. No acute cardiopulmonary finding.
== END 2022-12-25 08:27 | disposition home or self-care (01) ==
PROVIDERS: PCP Family Medicine; Visit Provider Internal Medicine Pulmonary Disease
DX: J22 Unspecified acute lower respiratory infection (principal)
CPT/HCPCS: 71046

== ENCOUNTER → 2023-02-04 09:03 | Outpatient (BNVA) | payer MEDICARE, SELFPAY | PROVIDERS: PCP Family Medicine; Visit Provider Family Medicine | DX: J02.9 Acute pharyngitis, unspecified (principal); J45.909 Unspecified asthma, uncomplicated | CPT/HCPCS: 87070 ==

== ENCOUNTER → 2023-02-20 12:52 | Outpatient (BNVA) | payer MEDICARE, SELFPAY | PROVIDERS: PCP Family Medicine; Visit Provider Internal Medicine Pulmonary Disease | DX: R07.9 Chest pain, unspecified (principal); J44.9 Chronic obstructive pulmonary disease, unspecified; J30.81 Allergic rhinitis due to animal (cat) (dog) hair and dander; J45.909 Unspecified asthma, uncomplicated; J82.83 Eosinophilic asthma | CPT/HCPCS: 99214 ==

== ENCOUNTER 2023-02-27 11:55 | Outpatient (CLI) | payer MEDICARE, SELFPAY ==
[2023-02-27 12:25] VITALS: BMI 23.3
--- NOTE | 2023-02-27 12:26 | ECG_ITS ---
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 Interpretive Statements NAME OF STUDY: TREADMILL STRESS TEST INDICATION: [Shortness of Breath on exertion] EXERCISE DATA: The patient was exercised by Chi protocol. Baseline heart rate was 79 beats per minute. Baseline blood pressure was 130/79 millimeters of mercury. Target heart rate was 123 beats per minute. Maximum heart rate achieved was 133 which was 108% of the target heart rate. Maximum blood pressure was 221/98 millimeters of mercury. Total exercise time was 3 minutes. Maximum METs achieved was 4.6. The reason for ending the test was maximal effort achieved. The patient complained of shortness of breath during the stress test, which then resolved at the end of the test. ELECTROCARDIOGRAM: BASELINE: Showed sinus rhythm, normal axis, no significant ST-T changes at the baseline noted. [] EXERCISE: At the peak exercise level, [] No significant ST-T changes suggestive of ischemia noted. [] RECOVERY: During the recovery period, heart rate dropped appropriately. No significant ST-T changes in the recovery suggestive of ischemia noted. [] CONCLUSION: 1. Exercise capacity is poor 2. Heart rate response was appropriate 3. Blood pressure response was hypertensive 4. Symptoms not suggestive of ischemia. 5. Stress test is negative for ischemia Electronically Signed On 03-12-2023 10:30:45 CDT by Nando Rizvi M.D. [id number]
[2023-02-27 12:48] VITALS: BP 140/72; PULSE 87
== END 2023-02-27 11:56 | disposition home or self-care (01) ==
PROVIDERS: PCP Family Medicine; Visit Provider Internal Medicine Pulmonary Disease
DX: R07.9 Chest pain, unspecified (principal)
CPT/HCPCS: 93017

== ENCOUNTER 2023-02-28 13:08 | Oncology outpatient (recurring) (ONCR) | payer MEDICARE, SELFPAY ==
[2023-02-28] MEDS: NUCALA 1 EACH SUBCUT (14:17)
[2023-02-28 14:21] VITALS: BP 138/75; PULSE 70; RESP 17; TEMP 36.9; O2SAT 97
== END 2023-02-28 23:59 | disposition home or self-care (01) ==
PROVIDERS: PCP Family Medicine; Visit Provider Internal Medicine Pulmonary Disease
DX: J45.909 Unspecified asthma, uncomplicated (principal)
CPT/HCPCS: 96372

== ENCOUNTER → 2023-08-19 12:51 | Outpatient (BNVA) | payer MEDICARE, SELFPAY | PROVIDERS: PCP Family Medicine; Visit Provider Internal Medicine Pulmonary Disease | DX: J44.9 Chronic obstructive pulmonary disease, unspecified (principal); J30.81 Allergic rhinitis due to animal (cat) (dog) hair and dander; J45.998 Other asthma; J82.83 Eosinophilic asthma; R53.83 Other fatigue; Z12.2 Encounter for screening for malignant neoplasm of respiratory organs; R07.9 Chest pain, unspecified | CPT/HCPCS: 99214 ==

== ENCOUNTER 2023-08-29 08:02 | Outpatient (CLI) | payer MEDICARE, SELFPAY ==
[2023-08-29 08:58] LABS: Basophils % 0.8 %; Eosinophils % 0.4 %; Hematocrit 47.2 % (36-47); Lymphocytes # 2.2 10^3/uL (0.8-4.8); Lymphocytes % 43.1 %; Mean Corpuscular HGB Conc 33.3 g/dL (30-55); Mean Corpuscular Hemoglobin 30.3 pg (27-33); Mean Corpuscular Volume 91.1 fl (85-98); Mean Platelet Volume 8.7 fL (7.4-10.4); Monocytes # 0.6 10^3/uL (0.2-0.9); Monocytes % 12.3 %; Neutrophils # 2.19 10^3/uL (1.8-7.7); Neutrophils % 43.2 %; Nucleated Red Blood Cells % 0 %; Platelet Count 342 10^3/cmm (157-399); Red Blood Count 5.18 10^6/uL (3.85-5.65); Red Cell Distribution Width 13.1 % (12.1-15.1); White Blood Count 5.06 10^3/uL (3.29-11.43)
--- NOTE | 2023-08-29 09:00 | CT_ITS ---
WS: [email or web address] CT chest wo con [id number] HISTORY: Worsening symptoms, history of breast cancer TECHNIQUE: Axial imaging performed through the thorax. Coronal and sagittal reformats are submitted. [facility] at least one of these dose optimization techniques: automated exposure control; mA and/or kV adjustment per patient size (includes targeted exams where dose is mat ched to clinical indication); or iterative reconstruction. CONTRAST: None DLP: 218.62 mGy.cm COMPARISON: 05/18/2019 Lungs and central airway: Severe centrilobular emphysema. Lungs are hyperinflated with no mass or pne umonia. There are a few scattered subcentimeter pulmonary nodules identified. Some of these nodules w ere present on the prior study from 05/18/2019. Other nodules are new and probably postinflammatory. Perifissural nodule measures 3 mm along the minor fissure. Additional new 5 mm nodule in the anterior LEFT upper lobe. Pleura: Normal. No pleural effusion. Heart and pericardium: Normal size heart with no pericardial effusion. Mediastinum and steph: No mediastinum or hilar adenopathy. Vessels: Mild atherosclerosis aorta. Pulmonary artery size is normal. Chest wall and lower neck: RIGHT axillary dissection. Surgical clips in the RIGHT breast. Upper abdomen: Normal. Osseous structures: No destructive process. IMPRESSION: 1. No pneumonia. 2. Advanced centrilobular emphysema. 3. New, probably inflammatory nodules identified. Perifissural nodule associated with the RIGHT jeremi r fissure. Additional 5 mm nodule in the anterior LEFT upper lobe. Indeterminate solid pulmonary nodule measuring 5 mm. In a high-risk patient with a solid nodule <6 mm , CT at 12 months is optional with stronger consideration if there is suspicious nodule morphology an d/or upper lobe location. 4. Mild atherosclerosis aorta.
[2023-08-29 09:41] LABS: 25 Hydroxy Vitamin D 65 ng/mL (30-100); Alanine Aminotransferase 16 U/L (0-33); Albumin Level 4.3 g/dL (3.5-5.2); Alkaline Phosphatase 68 U/L (35-105); Anion Gap 12.1 (5-19); Aspartate Amino Transferase 22 U/L (0-32); Blood Urea Nitrogen 9 mg/dL (8-23); Calcium 8.7 mg/dL (8.5-10.5); Carbon Dioxide 27 mmol/L (22-29); Chloride 101 mmol/L (98-107); Chol HDL Ratio 3.87 mg/dL (0.0-4.40); Cholesterol 244 mg/dL (0-200); Globulin 2.5 g/dL (1.3-4.6); Glucose 96 mg/dL (65-115); HDL Cholesterol 63 mg/dL (60-100); LDL Cholesterol Calculated 170 mg/dL (50-129); Osmolality Calculated 281 mOsm/kg (285-295); Potassium 4.1 mmol/L (3.5-5.1); Sodium 136 mmol/L (136-145); Thyroid Stimulating Hormone 2.27 uIU/mL (0.27-4.20); Total Bilirubin 0.4 mg/dL (0.15-1.2); Total Protein 6.8 g/dL (6.6-8.7); Triglycerides 55 mg/dL (0-150)
[2023-08-29 10:10] LABS: Free T4 Free Thyroxine 1.33 ng/dL (0.82-1.77)
[2023-08-29 10:25] LABS: Estmated Average Glucose 117; Hemoglobin A1C 5.7 % (4.0-6.0)
== END 2023-08-29 08:03 | disposition home or self-care (01) ==
LOC: RAD 08:04
PROVIDERS: PCP Family Medicine; Visit Provider Internal Medicine Pulmonary Disease
DX: J44.9 Chronic obstructive pulmonary disease, unspecified (principal); E03.9 Hypothyroidism, unspecified; R53.83 Other fatigue; R73.09 Other abnormal glucose; E55.9 Vitamin D deficiency, unspecified; M51.36 Other intervertebral disc degeneration, lumbar region; M50.30 Other cervical disc degeneration, unspecified cervical region; M47.812 Spondylosis without myelopathy or radiculopathy, cervical region; M48.02 Spinal stenosis, cervical region; M54.81 Occipital neuralgia; S13.150A Subluxation of C4/C5 cervical vertebrae, initial encounter; X58.XXXA Exposure to other specified factors, initial encounter
CPT/HCPCS: 36415; 71250; 80053; 80061; 82306; 83036; 84439; 84443; 85025; 99204

== ENCOUNTER 2023-10-02 08:07 | Outpatient (CLI) | payer MEDICARE, SELFPAY ==
--- NOTE | 2023-10-02 08:30 | MM_ITS ---
WS: [id number] DIAGNOSTIC BILATERAL DIGITAL BREAST TOMOSYNTHESIS MAMMOGRAPHY WITH CAD HISTORY: annual HX BR CA COMPARISON: 09/24/2022, 09/15/2021 and 09/27/2020 TECHNIQUE: Bilateral craniocaudad, mediolateral oblique, and mediolateral views are submitted with to mosynthesis and SM. Computer aided detection utilized. Breast composition: There are scattered areas of fibroglandular density. Postsurgical lumpectomy site and sutures are noted upper outer quadrant of the RIGHT breast toward the axilla. There is mild skin thickening from prior surgery and treatment over the RIGHT breast. Coarse, dystrophic type calcifica tions in the central RIGHT breast. Vascular calcifications within each breast. No new or recurrent ma ss. IMPRESSION: MM/[place] [id number] BI-RADS: 2-Benign FOLLOW UP: 1 Year Follow-up
== END 2023-10-02 08:08 | disposition home or self-care (01) ==
LOC: RAD 08:07
PROVIDERS: PCP Family Medicine; Visit Provider Family Medicine
DX: Z85.3 Personal history of malignant neoplasm of breast (principal); R92.30 Dense breasts, unspecified
CPT/HCPCS: 77062; G0279

== ENCOUNTER → 2023-11-18 12:46 | Outpatient (BNVA) | payer MEDICARE, SELFPAY | PROVIDERS: PCP Family Medicine; Visit Provider Internal Medicine Pulmonary Disease | DX: J44.9 Chronic obstructive pulmonary disease, unspecified (principal); J30.81 Allergic rhinitis due to animal (cat) (dog) hair and dander; R07.9 Chest pain, unspecified; Z12.2 Encounter for screening for malignant neoplasm of respiratory organs; Z87.891 Personal history of nicotine dependence | CPT/HCPCS: 99214 ==

== ENCOUNTER 2024-02-20 11:28 | Outpatient (RCR) | payer MEDICARE, SELFPAY | END 2024-02-29 18:00 | disposition home or self-care (01) | LOC: SPT 11:28 | PROVIDERS: PCP Family Medicine; Visit Provider Family Medicine | DX: M26.609 Unspecified temporomandibular joint disorder, unspecified side (principal) | CPT/HCPCS: 97110; 97161 ==

== ENCOUNTER 2024-03-01 06:00 | Outpatient (RCR) | payer MEDICARE, SELFPAY | END 2024-03-19 23:59 | disposition home or self-care (01) | LOC: SPT 06:00 | PROVIDERS: PCP Family Medicine; Visit Provider Family Medicine | DX: D22.4 Melanocytic nevi of scalp and neck (principal); L73.8 Other specified follicular disorders; L81.8 Other specified disorders of pigmentation; D23.72 Other benign neoplasm of skin of left lower limb, including hip; L81.4 Other melanin hyperpigmentation; L57.8 Other skin changes due to chronic exposure to nonionizing radiation; M26.609 Unspecified temporomandibular joint disorder, unspecified side | CPT/HCPCS: 97110; 99203 ==

== ENCOUNTER 2024-03-17 22:37 | Emergency (ER) | payer MEDICARE, SELFPAY ==
[2024-03-17 22:38] VITALS: BP 184/102; PULSE 84; RESP 16; TEMP 37.1; O2SAT 96; BMI 22.1
--- NOTE | 2024-03-17 22:40 | ECG_ITS ---
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 Measurements Intervals [place] Rate: 84 P: 82 IA: 145 QRS: 24 QRSD: 93 T: 83 QT: 370 QTc: 438 Interpretive Statements SINUS RHYTHM Compared to ECG 06/09/2016 22:01:12 No significant changes Electronically Signed On 03-18-2024 8:22:34 CDT by Nando Rizvi M.D. [email or web address].[email or web address]/store/Ov/[id number]
[2024-03-17 22:41] VITALS: BP 184/94; PULSE 83; RESP 17; O2SAT 98
--- NOTE | 2024-03-17 22:47 | XRR_ITS ---
PROCEDURE INFORMATION: Exam: XR Chest Exam date and time: 03/17/2024 11:00 PM Age: 78 years old Clinical indication: Angina; Additional info: Cp/cheko TECHNIQUE: Imaging protocol: Radiologic exam of the chest. Views: 1 view. COMPARISON: CT chest con [id number] 08/29/2023 8:28 AM FINDINGS: Lungs: Emphysematous changes. Mild bibasilar atelectasis. No focal consolidation or evidence of pulmonary edema. Pleural spaces: Unremarkable. No pleural effusion. No pneumothorax. Heart/Mediastinum: Unremarkable. No cardiomegaly. Vasculature: Atherosclerotic aortic calcifications. Bones/joints: Unremarkable. Soft tissues: Right axillary surgical clips. Additional surgical clips of the right lower hemithorax. XR/XR chest 1V portable [id number] IMPRESSION: No acute cardiopulmonary findings.
[2024-03-17 22:56] VITALS: BP 175/83; PULSE 92; RESP 18; O2SAT 93
[2024-03-17 22:57] LABS: Basophils % 0.6 %; Eosinophils # 0.1 10^3/uL (0.0-0.8); Eosinophils % 0.8 %; Hematocrit 45.6 % (36-47); Lymphocytes # 3.3 10^3/uL (0.8-4.8); Lymphocytes % 52.3 %; Mean Corpuscular HGB Conc 33.6 g/dL (30-55); Mean Corpuscular Hemoglobin 30.4 pg (27-33); Mean Corpuscular Volume 90.5 fl (85-98); Mean Platelet Volume 8.3 fL (7.4-10.4); Monocytes # 0.7 10^3/uL (0.2-0.9); Monocytes % 10.8 %; Neutrophils # 2.21 10^3/uL (1.8-7.7); Nucleated Red Blood Cells % 0 %; Platelet Count 366 10^3/cmm (157-399); Red Blood Count 5.04 10^6/uL (3.85-5.65); Red Cell Distribution Width 13.8 % (12.1-15.1); White Blood Count 6.31 10^3/uL (3.29-11.43)
[2024-03-17 23:02] LABS: Add Urine Microscopic? NO; Bilirubin Urine Neg (Negative); Blood Urine Neg (Negative); Glucose Urine UA Norm (Normal); Ketones Urine Negative (Negative); Leukocyte Esterase Urine Negative (Negative); Nitrate Urine Negative (Negative); Protein Urine Neg (Negative); Urine Appearance Clear (CLEAR); Urine Color Yellow (Yellow); Urobilinogen Urine Neg (Negative); pH Urine 8 (5-7)
[2024-03-17 23:04] LABS: Charge for UA Resulting for Rev
[2024-03-17 23:09] LABS: Troponin(5th) Baseline 25 ng/L (0-10)
[2024-03-17 23:11] VITALS: BP 155/91; PULSE 88; RESP 18; O2SAT 97
[2024-03-17 23:12] LABS: Alanine Aminotransferase 17 U/L (0-33); Albumin Level 4.5 g/dL (3.5-5.2); Alkaline Phosphatase 78 U/L (35-105); Aspartate Amino Transferase 25 U/L (0-32); Blood Urea Nitrogen 14 mg/dL (8-23); Calcium 9.1 mg/dL (8.5-10.5); Carbon Dioxide 25 mmol/L (22-29); Chloride 96 mmol/L (98-107); Globulin 2.3 g/dL (1.3-4.6); Glucose 101 mg/dL (65-115); Osmolality Calculated 277 mOsm/kg (285-295); Sodium 133 mmol/L (136-145); Total Bilirubin 0.3 mg/dL (0.15-1.2); Total Protein 6.8 g/dL (6.6-8.7)
--- NOTE | 2024-03-17 23:14 | ED_ITS ---
HPI - General Adult 2 General: Chief complaint: General Medical Stated complaint: high BP Time Seen by Provider: 03/17/24 22:40 Source: patient Mode of arrival: EMS Limitations: no limitations History of Present Illness: Patient is a 78-year-old female who is brought in by ambulance due to acute onset of palpitations onset just prior to arrival. Patient states that she felt her heart racing and checked it, noted to be in the 180s. States she has had this in the past but was diagnosed with a panic attack. She called ambulance, and had a blood pressure noted to be elevated with them, she does arrive to the emergency department with an elevated blood pressure 184/102, does not take anything for this. She notes that with onset of palpitations, she had a central chest pressure that did not radiate, however did slowly subside. She did not take an aspirin or nitroglycerin, states that at this time she only feels dizzy and lightheaded. She notes that she has COPD and uses albuterol and breathing treatments as needed, no new shortness of breath at this time. With her chest pressure and palpitations, she states that she was not doing anything significantly strenuous or exerting herself. Denies any personal history of heart attacks or strokes. No other symptoms to report at this time MD complaint: Palpitations Onset (ago): minute(s) Associated symptoms: Reports chest pain and palpitations; Deny dyspnea, headache(s), nausea, rash or vomiting Related Data Home Medications Medication Instructions Recorded Confirmed Lactobacillus acidophilus 1 cap PO DAILY 07/31/19 02/18/24 [Probiotic Acidophilus] cholecalciferol (vitamin D3) 25 50 mcg PO QDAY 07/31/19 02/18/24 mcg (1,000 unit) capsule (Vitamin D3) magnesium 100 mg capsule 100 mg PO BID 03/09/21 02/18/24 Previous Rx's Medication Instructions Recorded Acapella #1 ea 11/19/22 mepolizumab 100 mg/mL subcutaneous 100 mg SUBCUT .q 4 weeks #1 mL 12/27/22 auto-injector (Nucala) valacyclovir 1 gram tablet See Rx Instructions .Route 07/23/23 .COMPLEX #90 tabs pantoprazole 40 mg tablet,delayed 40 mg PO DAILY #90 tabs 09/11/23 release fluticasone propionate 50 1 spray intranasal DAILY PRN 10/31/23 mcg/actuation nasal allergy symptoms #48 grams spray,suspension (Flonase Allergy Relief) albuterol sulfate 90 mcg/actuation 2 puff inhalation Q6H PRN 12/11/23 aerosol inhaler (Ventolin HFA) shortness of breath 90 days #18 grams fluticasone fur. 100 mcg-umeclid 1 inh inhalation DAILY #60 ea 03/05/24 62.5 mcg-vilant 25 mcg inhalat.powder (Trelegy Ellipta) levothyroxine 25 mcg tablet See Rx Instructions .Route 03/09/24 (Synthroid) .COMPLEX #135 tabs Allergies Allergy/AdvReac Type Severity Reaction Status Date / Time Sulfa (Sulfonamide Allergy UNKNOWN Verified 03/17/24 22:41 Antibiotics) Review of Systems 2 General: Reports: 10 or more systems reviewed and unremarkable except in HPI and below Const: Reports: fatigue; Denies: fever(s) or chills Eyes: Denies: change in vision ENMT: Denies: throat pain, ear or mastoid pain or nasal discharge Card: Reports: chest pain, palpitations and lightheadedness; Denies: edema or swelling of feet/ankles Resp: Denies: dyspnea, productive cough or wheezing GI: Denies: abdominal pain, nausea, vomiting, diarrhea or constipation : Denies: flank pain, difficulty voiding, dysuria or urinary frequency Musc: Denies: neck pain, back pain or joint pain Skin/Breast: Denies: rash Neuro: Reports: dizziness; Denies: headache(s), numbness in extremities or weakness in extremities PFSH ED 2 PFSH: Medical History HSV-1 (herpes simplex virus 1) infection Hemoglobin A1c less than 7.0% Dysphagia Dysphagia COVID-19 vaccine series completed Shortness of breath Subluxation of C4/C5 cervical vertebrae, initial encounter DDD (degenerative disc disease), thoracic DDD (degenerative disc disease), cervical Sinus congestion Insomnia Lumbar paraspinal muscle spasm DDD (degenerative disc disease), lumbar DDD (degenerative disc disease), lumbar Vitamin D deficiency Mixed hyperlipidemia Chronic obstructive pulmonary disease Hypothyroid PND (post-nasal drip) COPD (chronic obstructive pulmonary disease) Breast cancer Pneumonia Diverticulitis Herpes GERD (gastroesophageal reflux disease) Hypothyroidism Surgical History History of lumpectomy of right breast History of hysterectomy Hx of tonsillectomy H/O tubal ligation History of bladder surgery Zbuabjvj-Jqamfxffo-Skvyye Procedure Family History Father Lung disease COPD Psychiatric illness Depression Mother Cancer Lung Social History Smoking and tobacco/nicotine status: former use of tobacco/nicotine Quit status (tobacco/nicotine): has quit using Year quit tobacco: 2001 - 1PPD x 30 Years Alcohol intake: current Alcohol intake frequency: few times a week Substance/Drug Use: never Lives independently: Yes Household members: spouse Marital status: Current occupational status: retired Do you think of yourself as: Straight/Heterosexual Current gender identity: Female Physical Exam 2 Const: COMMON NORMALS: no acute distress, patient oriented x3 and no limitations GENERAL APPEARANCE: cooperative, comfortable and well developed ORIENTATION/CONSCIOUSNESS: Yes awake, Yes oriented to person, Yes oriented to place and Yes oriented to time HENMT: COMMON NORMALS: normocephalic, atraumatic and hearing grossly normal bilaterally HEAD & SCALP: normocephalic and atraumatic Eye: COMMON NORMALS: Equal, round and reactive pupils present, EOMs intact bilaterally and conjunctivae normal CONJUNCTIVA: Yes conjunctivae normal P UPIL: Yes Equal, round and reactive pupils present Neck/C-Spine: COMMON NORMALS: full ROM, supple and no JVD Resp: COMMON NORMALS: normal respiratory effort, No retractions, No use of accessory muscles and clear to auscultation bilaterally AUSCULTATION: clear to auscultation bilaterally Cardio: COMMON NORMALS: no JVD, regular rate, regular rhythm, No clicks present (Cardio), No murmurs present (Cardio) and No rub (Cardio) RATE: r egular rate RHYTHM: regular rhythm GI: COMMON NORMALS: Normal to inspection, nondistended, normoactive bowel sounds present, Soft to palpation and non-tender AUSCULTATION: Yes normoactive bowel sounds PALPATION: Yes Soft to palpation RECTAL EXAM: d eferred Back/Pelvis: COMMON NORMALS: thoracic and lumbar spine normal to inspection, no thoracic nor lumbar tenderness and thoraco-lumbar ROM normal Extremity: COMMON NORMALS: normal to inspection, full ROM and capillary refill normal NARRATIVE EXTREMITY EXAM: No peripheral edema Neuro: COMMON NORMALS: patient oriented x3, moves all extremities, no focal motor deficits and no sensory deficits noted SENSORIUM/ORIENTATION: Yes oriented to person, Yes oriented to place and Yes oriented to time Psych: COMMON NORMALS: mental status grossly normal and Normal thought process present THOUGHT PROCESS: Normal thought process present Skin: COMMON NORMALS: no rashes or lesions noted GENERAL SKIN EXAM: no rashes or lesions noted Course 2 Vital Signs: Vital signs: Vital Signs Temperature 98.8 F 03/17/24 22:38 Pulse Rate 75 03/18/24 01:45 Respiratory Rate 17 03/18/24 01:45 Blood Pressure 158/77 03/18/24 01:45 Pulse Oximetry 94 03/18/24 01:45 Oxygen Delivery Me thod Room Air 03/18/24 01:15 MDM - General Adult Medical Decision Making Patient brought in by ambulance for episode of tachycardia and chest pain prior to arrival. History of similar where she was diagnosed with panic attack. On arrival states she was symptom-free. Blood pressure noted to be elevated at time of examination at 170 systolic, heart rate normalized. All of her blood work unremarkable, troponin noted to be mildly elevated at 24. Did also order a D-dimer to evaluate for the tachycardia and some shortness of breath, albeit she has a history of COPD, this was positive so CTA was ordered. However while CTA being interpreted, she requests to leave AGAINST MEDICAL ADVICE. We still will call her if the CTA shows any signs of a pulmonary embolism. Also encouraged her to please return if she continues to have pain or any other episodes of the tachycardia. This case discussed with Dr. Roman. Patient's troponin noted to be trending upwards, she had already left AGAINST MEDICAL ADVICE before this came back. CTA results did not demonstrate any acute PE. However due to the elevated troponin, I did call the patient's personal line and had thorough conversation with her in regards to this lab. She is instructed to call her primary care's office today on 03/18 to get in and have her troponin redrawn, and return to the emergency department with any abnormalities or recurrence of chest pain and tachycardia. While on the phone patient denies any new symptoms whatsoever, however states that after phone call she will get with her primary care provider to have this rechecked. Lab Data 03/17/24 22:43 03/17/24 22:43 Radiology Impressions Chest X-Ray 03/17/24 22:47 IMPRESSION: No acute cardiopulmonary findings. Chest CTA 03/17/24 23:30 IMPRESSION: 1. No evidence of pulmonary embolism. 2. New mild areas of peripheral nodularity and interstitial thickening in the left posterior lower lobe and right anterior upper lobe as well as a new small consolidative focus in the left anterior upper lobe. Findings suggest areas of pneumonitis. 3. 6 mm left posterior lower lobe subpleural nodule, likely inflammatory, not present on prior study. Fleischner recommendations below. COMMENTS: 1. For patients at low risk (minimal or absent history of smoking and of other known risk factors), recommend CT Chest at 3-6 months, then consider CT Chest at 18-24 months. For patients at high risk (history of smoking or of other known risk factors), recommend CT Chest at 3-6 months, then CT Chest at 18-24 months. (Reference: Amelie) 2. The presence of pulmonary emphysema on CT is an independent risk factor for lung cancer. In the absence of a history or active diagnosis of lung cancer, it is recommended that this patient with emphysema be evaluated for enrollment in a low dose CT lung cancer screening program. REFERENCES: Amelie Aparicio, et al. Guidelines for Management of Incidental Pulmonary Nodules Detected on CT Images: From the Fleischner Society 2017. Radiology. 2017;284(1):228-243. Laboratory Results WBC 6.31 10^3/uL (3.29-11.43) 03/17/24 22:43 RBC 5.04 10^6/uL (3.85-5.65) 03/17/24 22:43 Hgb 15.30 g/dL (11.27-16.99) 03/17/24 22:43 Hct 45.6 % (36-47) 03/17/24 22:43 MCV 90.5 fl (85-98) 03/17/24 22:43 MCH 30.4 pg (27-33) 03/17/24 22:43 MCHC 33.6 g/dL (30-55) 03/17/24 22:43 RDW 13.8 % (12.1-15.1) 03/17/24 22:43 Plt Count 366 10^3/cmm (157-399) 03/17/24 22:43 MPV 8.3 fL (7.4-10.4) 03/17/24 22:43 Neut % (Auto) 35.0 % 03/17/24 22:43 Lymph % (Auto) 52.3 % 03/17/24 22:43 [place] % (Auto) 10.8 % 03/17/24 22:43 Eos % (Auto) 0.8 % 03/17/24 22:43 Baso % (Auto) 0.6 % 03/17/24 22:43 Neut # (Auto) 2.21 10^3/uL (1.8-7.7) 03/17/24 22:43 Lymph # (Auto) 3.3 10^3/uL (0.8-4.8) 03/17/24 22:43 [place] # (Auto) 0.7 10^3/uL (0.2-0.9) 03/17/24 22:43 Eos # (Auto) 0.1 10^3/uL (0.0-0.8) 03/17/24 22:43 Baso # (Auto) 0.0 10^3/uL (0.0-0.1) 03/17/24 22:43 Nucleated RBC % (auto) 0 % 03/17/24 22:43 Nucleated RBCs # 0.0 /100WBC 03/17/24 22:43 D-Dimer 0.88 ug/mLFEU (0-0.59) H 03/17/24 22:43 Sodium 133 mmol/L (136-145) L 03/17/24 22:43 Potassium 4.3 mmol/L (3.5-5.1) 03/17/24 22:43 Chloride 96 mmol/L (98-107) L 03/17/24 22:43 Carbon Dioxide 25 mmol/L (22-29) 03/17/24 22:43 Anion Gap 16.3 (5-19) 03/17/24 22:43 BUN 14 mg/dL (8-23) 03/17/24 22:43 Creatinine 0.5 mg/dL (0.5-0.9) 03/17/24 22:43 GFR Calculation Not Reportable 03/17/24 22:43 Glucose 101 mg/dL (65-115) 03/17/24 22:43 Calculated Osmolality 277 mOsm/kg (285-295) L 03/17/24 22:43 Calcium 9.1 mg/dL (8.5-10.5) 03/17/24 22:43 Total Bilirubin 0.3 mg/dL (0.15-1.2) 03/17/24 22:43 AST 25 U/L (0-32) 03/17/24 22:43 ALT 17 U/L (0-33) 03/17/24 22:43 Alkaline Phosphatase 78 U/L (35-105) 03/17/24 22:43 Troponin T Baseline 25 ng/L (0-10) H 03/17/24 22:43 Troponin T 120 Minute 34.27 ng/L (0-10) H 03/18/24 01:16 Delta Troponin T 9.27 ABS# (0-10) 03/18/24 01:16 Total Protein 6.8 g/dL (6.6-8.7) 03/17/24 22:43 Albumin 4.5 g/dL (3.5-5.2) 03/17/24 22:43 Globulin 2.3 g/dL (1.3-4.6) 03/17/24 22:43 Urine Color Yellow (Yellow) 03/17/24 22:50 Urine Appearance Clear (CLEAR) 03/17/24 22:50 Urine pH 8 (5-7) A 03/17/24 22:50 Ur Specific [place] 1.010 (1.005-1.030) 03/17/24 22:50 Urine Protein Neg (Negative) 03/17/24 22:50 Urine Glucose (UA) Norm (Normal) 03/17/24 22:50 Urine Ketones Negative (Negative) 03/17/24 22:50 Urine Blood Neg (Negative) 03/17/24 22:50 Urine Nitrate Negative (Negative) 03/17/24 22:50 Urine Bilirubin Neg (Negative) 03/17/24 22:50 Urine Urobilinogen Neg mg/dL (Negative) 03/17/24 22:50 Ur Leukocyte Esterase Negative (Negative) 03/17/24 22:50 Amorphous Sediment Not Reportable 03/17/24 22:50 All radiology interpretation(s) finalized by discharge Discharge Plan Discharge Patient Disposition: Left Against Medical Advice Clinical Impression: Tachycardia, Chest pain, Left against medical advice Condition: Stable Prescriptions: No Action Lactobacillus acidophilus 1 cap PO DAILY cholecalciferol (vitamin D3) [Vitamin D3] 25 mcg (1,000 unit) capsule 50 mcg PO QDAY pantoprazole 40 mg tablet,delayed release (DR/EC) 40 mg PO DAILY Qty: 90 3RF (DME) Acapella See Rx Instructions .Route .MEDSUPPLY Qty: 1 0RF Rx Instructions: As directed Nucala 100 mg/mL auto-injector 100 mg SUBCUT .q 4 weeks Qty: 1 12RF valacyclovir 1 gram tablet See Rx Instructions .ROUTE .COMPLEX Qty: 90 2RF Dose Instruction: take 1/2 tablet BY MOUTH EVERY DAY Rx Instructions: take 1/2 tablet BY MOUTH EVERY DAY fluticasone propionate [Flonase Allergy Relief] 50 mcg/actuation spray,suspension 1 spray INTRANASAL DAILY PRN (Reason: allergy symptoms) Qty: 48 3RF albuterol sulfate [Ventolin HFA] 90 mcg/actuation HFA aerosol inhaler 2 puff INHALATION Q6H PRN (Reason: shortness of breath) 90 Days Qty: 18 11RF Trelegy Ellipta 100-62.5-25 mcg blister with device 1 inh inhalation DAILY Qty: 60 3RF levothyroxine [Synthroid] 25 mcg tablet See Rx Instructions .ROUTE .COMPLEX Qty: 135 0RF Dose Instruction: TAKE 1 AND 1/2 TABLETS DAILY Rx Instructions: TAKE 1 AND 1/2 TABLETS DAILY magnesium 100 mg Capsule 100 mg PO BID Referrals: Angela Gonsalves MD [Primary Care Provider] - Coding Level of Care Code ED Legal Receptionist for Juliocesar Holbrook
[2024-03-17 23:18] LABS: Anion Gap 16.3 (5-19); Potassium 4.3 mmol/L (3.5-5.1)
[2024-03-17 23:26] LABS: D Dimer 0.88 ug/mLFEU (0-0.59)
--- NOTE | 2024-03-17 23:30 | CTR_ITS ---
PROCEDURE INFORMATION: Exam: CTA Chest With Contrast Exam date and time: 03/18/2024 12:30 AM Age: 78 years old Clinical indication: Angina; Additional info: Cp/tachy TECHNIQUE: Imaging protocol: Computed tomographic angiography of the chest with contrast. Exam focused on the arteries. 3D rendering (Not supervised by radiologist): MIP and/or 3D reconstructed images were created by the technologist. Radiation optimization: All CT scans at this facility use at least one of these dose optimization techniques: automated exposure control; mA and/or kV adjustment per patient size (includes targeted exams where dose is matched to clinical indication); or iterative reconstruction. Contrast material: OMNI 350; Contrast volume: 100 ml; Contrast route: INTRAVENOUS (IV); COMPARISON: CT chest wo con [id number] 08/29/2023 8:28 AM RADIATION DOSE METRICS: Total DLP (mGy-cm): 270 FINDINGS: Pulmonary arteries: The pulmonary arteries are adequately visualized to the segmental level. No filling defects are identified to suggest pulmonary artery embolism. The main pulmonary artery is normal in size. There is no evidence of right heart strain. Aorta: Atherosclerotic calcifications of the aorta are present. No aneurysm is identified. Lungs: [id number] emphysematous change. New areas of interlobular septal thickening and nodularity in the anterior right upper lobe. New 6 mm left posterior lower lobe subpleural nodule. New small focal area of peripheral consolidation in the anterior left upper lobe. Stable clustered left apical nodules Pleural spaces: No pleural effusion or pneumothorax. Heart: Heart size is within normal limits. There is no pericardial effusion or pericardial thickening. Mild mitral annular calcifications are present. Coronary arteries: Mild coronary artery calcification. Lymph nodes: No enlarged lymph nodes are identified. Bones/joints: No acute osseous abnormalities are seen. Soft tissues: Right axillary clips are noted. CT/CT angio chest PE protcl [id number] IMPRESSION: 1. No evidence of pulmonary embolism. 2. New mild areas of peripheral nodularity and interstitial thickening in the left posterior lower lobe and right anterior upper lobe as well as a new small consolidative focus in the left anterior upper lobe. Findings suggest areas of pneumonitis. 3. 6 mm left posterior lower lobe subpleural nodule, likely inflammatory, not present on prior study. Fleischner recommendations below. COMMENTS: 1. For patients at low risk (minimal or absent history of smoking and of other known risk factors), recommend CT Chest at 3-6 months, then consider CT Chest at 18-24 months. For patients at high risk (history of smoking or of other known risk factors), recommend CT Chest at 3-6 months, then CT Chest at 18-24 months. (Reference: Amelie) 2. The presence of pulmonary emphysema on CT is an independent risk factor for lung cancer. In the absence of a history or active diagnosis of lung cancer, it is recommended that this patient with emphysema be evaluated for enrollment in a low dose CT lung cancer screening program. REFERENCES: Amelie Aparicio, et al. Guidelines for Management of Incidental Pulmonary Nodules Detected on CT Images: From the Fleischner Society 2017. Radiology. 2017;284(1):228-243.
[2024-03-18] VITALS: BP 139/80; PULSE 76; RESP 16; O2SAT 96
[2024-03-18] MEDS: iohexol 350 mg/mL 500 mL Btl (per mL) IV (00:33)
[2024-03-18 00:41] VITALS: BP 166/78; PULSE 76; RESP 14; O2SAT 96
--- NOTE | 2024-03-18 00:47 | ECG_ITS ---
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 Measurements Intervals Melfa Rate: 71 P: 77 PA: 160 QRS: 44 QRSD: 82 T: 80 QT: 392 QTc: 428 Interpretive Statements SINUS RHYTHM POSSIBLE LEFT ATRIAL ENLARGEMENT [-0.1mV P-WAVE IN V1/V2] Compared to ECG 03/17/2024 22:40:00 No significant changes Electronically Signed On 03-19-2024 0:25:02 CDT by Bonny Bañuelos M.D. [email or web address]
[2024-03-18 01:00] VITALS: BP 151/89; PULSE 68; RESP 14; O2SAT 96
[2024-03-18 01:15] VITALS: BP 178/78; PULSE 73; RESP 15; O2SAT 98
[2024-03-18 01:30] VITALS: BP 157/78; PULSE 70; RESP 18; O2SAT 97
[2024-03-18 01:45] VITALS: BP 158/77; PULSE 75; RESP 17; O2SAT 94
[2024-03-18 01:58] LABS: Troponin 5 2HR 34.27 ng/L (0-10); Troponin 5 2HR Delta 9.27 ABS# (0-10)
== END 2024-03-18 02:03 | disposition left against medical advice (07) ==
PROVIDERS: Emergency Provider Physician Assistant; PCP Family Medicine
DX: R00.0 Tachycardia, unspecified (principal); R07.9 Chest pain, unspecified; Z53.29 Procedure and treatment not carried out because of patient's decision for other reasons; Z87.891 Personal history of nicotine dependence; E78.2 Mixed hyperlipidemia; J44.9 Chronic obstructive pulmonary disease, unspecified; Z85.3 Personal history of malignant neoplasm of breast
CPT/HCPCS: 71045; 71275; 80053; 81003; 84484; 85025; 85378; 93005; 99285

== ENCOUNTER 2024-05-05 09:33 | Outpatient (CLI) | payer MEDICARE, SELFPAY ==
[2024-05-05 09:38] VITALS: BMI 21.7
--- NOTE | 2024-05-05 09:44 | ECG_ITS ---
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 Interpretive Statements LEXISCAN SESTAMIBI STRESS TEST Procedure: At the baseline, the blood pressure was 148/83 mmHg with a heart rate of 67 bpm. The electrocardiogram showed normal sinus rhythm, normal axis with normal ST and T's. The Lexiscan was infused over a period of 20 seconds. A total of 0.4 mg of Lexiscan was infused. The stress phase was continued for a total of 5 minutes. Heart rate was at the end of stress phase was 106 bpm and a blood pressure of 137/77 mmHg. The EKG at the peak infusion revealed normal sinus rhythm with significant ST depressions seen in the inferior and anterolateral house. Sestamibi was injected 20 seconds after the Lexiscan infusion. Blood pressure at the end of recovery phase was 151/88 mmHg with a heart rate of 93 bpm. Conclusion: 1. ST depressions seen in above mentioned leads with lexiscan injection. 2. No Lexiscan induced chest pain or cardiac arrhythmia. 3. Normal blood pressure and heart rate response. 4. Sestamibi/sestamibi perfusion scan pending; see separate report. Electronically Signed On 06-03-2024 19:29:16 MANAGER MUSIC by Nando Rizvi M.D. [id number]
--- NOTE | 2024-05-05 09:44 | NMCV_ITS ---
NM oscar perf SPECT r/s* [id number] Noemi Yoder Age: 78 Gender: F : 1945 Exam Date: 05/05/2024 10:27 Ordering Phys: Angela Gonsalves MD Technologist: ANGELA Stevenson Exam Location: [facility] Indications: cp STRESS TEST Please see separate stress test report in [facility] for full findings IMAGE PROTOCOL Rest/Stress 1 Lexiscan Day Radiopharmaceutical Dose (mCi) Administration Site Administered by Rest: Tc-99m 10.8 IV Princess Torres, SECTION SUPERVISOR Stress:Tc-99m 32 IV Princess Torres, SECTION SUPERVISOR Rest: 05/05/2024 60 Discovery 630 Stress: 05/05/2024 30 Discovery 630 0.4mg Lexiscan. Images obtained in supine and prone position. SPECT RESULTS Technical Quality: Good Raw Data Analysis: Image Corrections: Summed Stress Score: 0 Summed Rest Score: 1 Summed Difference Score: 0 PERFUSION FINDINGS SPECT images demonstrate homogeneous tracer distribution throughout the myocardium. FUNCTIONAL RESULTS (calculated via Gated SPECT) Stress Image LV EF (%): 86 Stress EDV (mL):37 TID: 1.3 Stress ESV (mL):5 FUNCTIONAL FINDINGS: There is normal left ventricular systolic function. TID ratio is elevated which could be secondary left ventricle hypertrophy IMPRESSIONS Myocardial perfusion imaging is normal. EKG segment will be documented separately. Jackie Santana MD (Electronically Signed) Final Date: 05 May 2024 19:56 S
[2024-05-05] MEDS: regadenoson 0.4 Mg/5 ml Syringe IVP (11:20)
[2024-05-05 11:38] VITALS: BP 138/84; PULSE 66
== END 2024-05-05 09:34 | disposition home or self-care (01) ==
PROVIDERS: PCP Family Medicine; Visit Provider Family Medicine
DX: R07.9 Chest pain, unspecified (principal); R79.89 Other specified abnormal findings of blood chemistry; R06.02 Shortness of breath
CPT/HCPCS: 36415; 78452; 93017; 96374; A9500; J2785

== ENCOUNTER → 2024-06-01 13:07 | Outpatient (BNVA) | payer MEDICARE, SELFPAY | PROVIDERS: PCP Family Medicine; Visit Provider Internal Medicine Cardiovascular Disease | DX: R07.9 Chest pain, unspecified (principal); R00.0 Tachycardia, unspecified; I10 Essential (primary) hypertension; F17.211 Nicotine dependence, cigarettes, in remission; R00.2 Palpitations; J44.9 Chronic obstructive pulmonary disease, unspecified | CPT/HCPCS: 99204 ==

== ENCOUNTER → 2024-07-13 15:22 | Outpatient (BNVA) | payer MEDICARE, SELFPAY | PROVIDERS: PCP Family Medicine; Visit Provider Internal Medicine Cardiovascular Disease | DX: I10 Essential (primary) hypertension (principal); J44.9 Chronic obstructive pulmonary disease, unspecified; R00.2 Palpitations | CPT/HCPCS: 99214 ==

== ENCOUNTER 2024-08-25 08:58 | Outpatient (CLI) | payer MEDICARE, SELFPAY ==
[2024-08-25 09:45] LABS: Anion Gap 10.5 (5-19); Blood Urea Nitrogen 10 mg/dL (8-23); Calcium 9.1 mg/dL (8.5-10.5); Carbon Dioxide 28 mmol/L (22-29); Chloride 94 mmol/L (98-107); Glucose 78 mg/dL (65-115); Osmolality Calculated 264 mOsm/kg (285-295); Potassium 4.5 mmol/L (3.5-5.1); Sodium 128 mmol/L (136-145)
== END 2024-08-25 08:59 | disposition home or self-care (01) ==
PROVIDERS: PCP Family Medicine; Visit Provider Nurse Practitioner Family
DX: R09.89 Other specified symptoms and signs involving the circulatory and respiratory systems (principal)
CPT/HCPCS: 36415; 80048

== ENCOUNTER → 2024-09-04 12:41 | Outpatient (BNVA) | payer MEDICARE, SELFPAY | PROVIDERS: PCP Family Medicine; Visit Provider Family Medicine | DX: E87.1 Hypo-osmolality and hyponatremia (principal) | CPT/HCPCS: 80048 ==

== ENCOUNTER 2024-10-05 08:55 | Outpatient (CLI) | payer MEDICARE, SELFPAY ==
--- NOTE | 2024-10-05 09:30 | MM_ITS ---
WS: [id number] DIAGNOSTIC BILATERAL DIGITAL BREAST TOMOSYNTHESIS MAMMOGRAPHY WITH CAD HISTORY: breast cancer screening COMPARISON: 10/02/2023, 09/24/2022, 09/15/2021 TECHNIQUE: Bilateral craniocaudad, mediolateral oblique, and mediolateral views are submitted with tomosynthesis and SM. Computer aided detection utilized. Breast composition: The breasts are heterogeneously dense, which may obscure small masses. Prior RIGHT breast lumpectomy. Numerous surgical clips are noted in the RIGHT axillary tail. Dense coarse calcification upper outer quadrant of the RIGHT breast along with bilateral vascular calcifications. No suspicious grouping of calcifications. MM/MM diag BI tomosynthesis [id number] IMPRESSION: BI-RADS: 2 - Benign FOLLOW UP: 1 Year Follow-up
== END 2024-10-05 08:56 | disposition home or self-care (01) ==
LOC: RAD 08:56
PROVIDERS: PCP Family Medicine; Visit Provider Family Medicine
DX: Z85.3 Personal history of malignant neoplasm of breast (principal); R92.333 Mammographic heterogeneous density, bilateral breasts; Z98.890 Other specified postprocedural states; R92.1 Mammographic calcification found on diagnostic imaging of breast
CPT/HCPCS: 77062; G0279

== ENCOUNTER → 2024-11-24 10:11 | Outpatient (BNVA) | payer MEDICARE, SELFPAY | PROVIDERS: PCP Family Medicine; Visit Provider Family Medicine | DX: E03.9 Hypothyroidism, unspecified (principal) | CPT/HCPCS: 84443 ==

== ENCOUNTER 2024-12-17 08:13 | Outpatient (CLI) | payer MEDICARE, SELFPAY ==
[2024-12-17 08:35] VITALS: PULSE 61; RESP 18; O2SAT 99
[2024-12-17] MEDS: albuterol 2.5 mg/3 mL Neb INHALATION (08:35)
== END 2024-12-17 08:14 | disposition home or self-care (01) ==
PROVIDERS: PCP Family Medicine; Visit Provider Family Medicine
DX: J44.9 Chronic obstructive pulmonary disease, unspecified (principal); J98.8 Other specified respiratory disorders
CPT/HCPCS: 94060; J7613

== ENCOUNTER → 2025-01-08 08:39 | Outpatient (BNVA) | payer MEDICARE, SELFPAY | PROVIDERS: PCP Family Medicine; Visit Provider Nurse Practitioner Family | DX: R09.89 Other specified symptoms and signs involving the circulatory and respiratory systems (principal); Z87.891 Personal history of nicotine dependence | CPT/HCPCS: 99213 ==

== ENCOUNTER → 2025-02-12 09:34 | Outpatient (BNVA) | payer MEDICARE, SELFPAY | PROVIDERS: PCP Family Medicine; Visit Provider Family Medicine | DX: R53.83 Other fatigue (principal); E03.9 Hypothyroidism, unspecified; E55.9 Vitamin D deficiency, unspecified | CPT/HCPCS: 80053; 82306; 82607; 83735; 84443; 85025 ==

== ENCOUNTER → 2025-03-12 10:04 | Outpatient (BNVA) | payer MEDICARE, SELFPAY | PROVIDERS: PCP Family Medicine; Visit Provider Nurse Practitioner Family | DX: L73.8 Other specified follicular disorders (principal); L81.8 Other specified disorders of pigmentation; D23.72 Other benign neoplasm of skin of left lower limb, including hip; L81.4 Other melanin hyperpigmentation; L57.8 Other skin changes due to chronic exposure to nonionizing radiation; D23.39 Other benign neoplasm of skin of other parts of face; D48.5 Neoplasm of uncertain behavior of skin | CPT/HCPCS: 11102; 99213 ==

== ENCOUNTER 2025-03-15 08:45 | Outpatient (CLI) | payer MEDICARE, SELFPAY ==
--- NOTE | 2025-03-15 08:52 | CT_ITS ---
WS: [id number] CT chest wo con [id number] HISTORY: COPD WITH ASTHMA, ABNORMAL PFT TECHNIQUE: Axial imaging performed through the thorax. Coronal and sagittal reformats are submitted. All CT scans at [facility] use at least one of these dose optimization techniques: automated exposure control; mA and/or kV adjustment per patient size (includes targeted exams where dose is matched to clinical indication); or iterative reconstruction. CONTRAST: None DLP: 209.59 mGy.cm COMPARISON: 03/18/2024 Lungs and central airway: Marked pulmonary hyperinflation from centrilobular emphysema. There are multiple new pulmonary nodules since 03/18/2024. Some of the nodules previously described and opacifications have resolved. New pulmonary nodule at the RIGHT apex measures 4 x 7 x 8 mm. Slightly spiculated nodule superior segment LEFT lower lobe measures 7 x 6 x 11 mm. There are numerous additional pulmonary nodules which are smaller in size. Pleura: Normal. No pleural effusion. Heart and pericardium: Normal size heart with no pericardial effusion. Mediastinum and steph: No mediastinum or hilar adenopathy. Vessels: Mild atherosclerosis aorta. Normal size pulmonary artery. Chest wall and lower neck: Prior RIGHT axillary jennifer dissection. Postsurgical changes in the RIGHT breast from prior lumpectomy. Upper abdomen: Small hiatal hernia. No adrenal mass. Suprarenal aortic calcifications. Osseous structures: No destructive process. CT/CT chest wo con [id number] IMPRESSION: 1. Advanced centrilobular emphysema. 2. There are numerous new pulmonary nodules. Metastatic disease versus inflamm atory nodules. Some of these are well-circumscribed and somewhat spiculated. Ne w nodule measuring 4 x 7 x 8 mm at the RIGHT apex and spiculated nodule superio r segment LEFT lower lobe measures 7 x 6 x 11 mm. There are additional smaller nodules within both lungs. These may be inflammatory nodules. Consider PET/CT i reji at this time. Some of these nodules may be too small to accurately evalu ate by PET/CT. Recommend additional 3-month follow-up chest CT with IV contrast . 3. Prior RIGHT axillary jennifer dissection and RIGHT lumpectomy.
== END 2025-03-15 08:46 | disposition home or self-care (01) ==
LOC: RAD 08:46
PROVIDERS: PCP Family Medicine; Visit Provider Internal Medicine
DX: J44.89 Other specified chronic obstructive pulmonary disease (principal); R94.2 Abnormal results of pulmonary function studies; R91.8 Other nonspecific abnormal finding of lung field; Z98.890 Other specified postprocedural states; K44.9 Diaphragmatic hernia without obstruction or gangrene
CPT/HCPCS: 71250

== ENCOUNTER 2025-04-28 13:00 | Outpatient (CLI) | payer MEDICARE, SELFPAY ==
--- NOTE | 2025-04-28 13:07 | XR_ITS ---
WS: [id number] Exam: XR chest 2V* [id number] Date/Time of Exam: 04/28/2025 1:07 PM Reason For Exam: shortness of breath Comparison 03/17/2024. Lungs are clear and hyperinflated. Normal cardiomediastinal silhouette. Postop changes of the RIGHT breast. Bony structures are intact. XR/XR chest 2V* [id number] IMPRESSION: 1. Pulmonary hyperinflation. No acute cardiopulmonary finding.
== END 2025-04-28 13:01 | disposition home or self-care (01) ==
PROVIDERS: PCP Family Medicine; Visit Provider Family Medicine
DX: J44.1 Chronic obstructive pulmonary disease with (acute) exacerbation (principal); N64.89 Other specified disorders of breast
CPT/HCPCS: 71046

== ENCOUNTER 2025-05-12 13:50 | Outpatient (CLI) | payer MEDICARE, SELFPAY ==
--- NOTE | 2025-05-12 14:00 | XR_ITS ---
WS: [id number] DEXA (DUAL ENERGY X-RAY ABSORPTIOMETRY) Bone mineral density was performed using a [employer] machine. HISTORY: osteoporosis screening COMPARISON: 02/07/2022 Lumbar spine BMD (L1-L4): 1.179 g/cm2 T score: 0.0 Z score: 2.1 Total hip BMD: Left: 0.974 g/cm2. T score: -0.3 Z score: 1.8 Right: 1.000 g/cm2. T score: -0.1 Z score: 2.1 10 year probability of a major osteoporotic fracture is 10.1%. Compared to the prior study from 02/07/2022. Lumbar spine bone mineral density has decreased by 7.2%. Bilateral hips bone mineral density has decreased by 6.7%. XR/XR DEXA axial skeleton* [id number] IMPRESSION: NORMAL BONE MINERAL DENSITY based upon the WHO classification for females. Significant decrease in bone mineral density within the lumbar spine and hips s pramod the prior study.
== END 2025-05-12 13:51 | disposition home or self-care (01) ==
LOC: RAD 13:50
PROVIDERS: PCP Family Medicine; Visit Provider Family Medicine
DX: Z13.820 Encounter for screening for osteoporosis (principal); Z78.0 Asymptomatic menopausal state
CPT/HCPCS: 77080

== ENCOUNTER → 2025-06-04 07:51 | Outpatient (BNVA) | payer MEDICARE, SELFPAY | PROVIDERS: PCP Family Medicine; Visit Provider Family Medicine | DX: I95.9 Hypotension, unspecified (principal) | CPT/HCPCS: 82533 ==

== ENCOUNTER → 2025-06-07 13:19 | Outpatient (BNVA) | payer MEDICARE, SELFPAY | PROVIDERS: PCP Family Medicine; Visit Provider Internal Medicine Cardiovascular Disease | DX: R09.89 Other specified symptoms and signs involving the circulatory and respiratory systems (principal) | CPT/HCPCS: 99214 ==

== ENCOUNTER → 2025-06-08 07:42 | Outpatient (BNVA) | payer MEDICARE, SELFPAY | PROVIDERS: PCP Family Medicine; Visit Provider Family Medicine | DX: I95.9 Hypotension, unspecified (principal) | CPT/HCPCS: 82024 ==